=== PATIENT | female | born 1955 | race Two or more races ===

== ENCOUNTER → 2024-04-23 | Outpatient (CLI) | payer OTHER, SELFPAY ==
--- NOTE | 2024-04-23 12:35 | XR_ITS ---
Examination: Fingers, right hand fourth digit 3 views Technique: AP, oblique, lateral views right hand fourth digit 3 views. 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
== END | disposition home or self-care (01) ==
LOC: CDIM 12:23
PROVIDERS: PCP Family Medicine; Referring Provider Nurse Practitioner Family; Visit Provider Nurse Practitioner Family
DX: M19.041 Primary osteoarthritis, right hand (principal)
CPT/HCPCS: 73140

== ENCOUNTER → 2024-04-28 | Outpatient (CLI) | payer OTHER, SELFPAY ==
[2024-04-28 08:38] LABS: Basophils % (Auto) 1 % (0-2.5); Eosinophils # (Auto) 0.1 Thou/mm3 (0.0-0.5); Eosinophils % (Auto) 1 % (0-10); Hematocrit 41.2 % (36.0-46.0); Hemoglobin 13.5 g/dL (12.0-16.0); Immature Granulocytes % (Auto) 0 % (0-0); Immature Granulocytes Auto 0.01 Thou/mm3 (0.00-0.00); Lymphocytes # (Auto) 2.6 Thou/mm3 (1.0-4.8); Lymphocytes % (Auto) 41 % (10-50); Mean Corpuscular HGB Conc 32.8 g/dl (31.0-37.0); Mean Corpuscular Hemoglobin 29.5 pg (25.0-35.0); Mean Corpuscular Volume 90 fL (80-100); Monocytes # (Auto) 0.5 Thou/mm3 (0.0-0.8); Monocytes % (Auto) 7 % (0-12); Neutrophils # (Auto) 3.2 Thou/mm3 (1.8-7.7); Neutrophils % (Auto) 50 % (37-80); Nucleated Red Blood Cell % 0 /100 WBC (0); Platelet Count 127 Thou/mm3 (140-440); RDW Standard Deviation 43.8 fL (36.4-46.3); Red Blood Count 4.57 Miln/mm3 (4.00-5.20); White Blood Count 6.3 Thou/mm3 (3.6-11.0)
[2024-04-28 08:53] LABS: Alanine Aminotransferase 35 U/L (10-49); Albumin, Serum 4.3 gm/dL (3.4-4.8); Albumin/Globulin Ratio 1.3 (1.2-2.2); Alkaline Phosphatase 93 U/L (46-116); Anion Gap 8 (7-16); Aspartate Amino Transferase 25 U/L (0-34); BUN/Creatinine Ratio 16 Ratio (12-20); Bilirubin,Total 0.9 mg/dL (0.3-1.2); Blood Urea Nitrogen 16 mg/dL (9-23); Calcium 9.6 mg/dL (8.3-10.6); Calcium (Corrected) 9.6 mg/dL (8.5-10.1); Carbon Dioxide 26.5 mMol/L (20.0-31.0); Cardiac Risk Estimate 4.1 RATIO (3.7-5.6); Chloride 106 mMol/L (98-107); Cholesterol 188 mg/dL (132-200); Globulin 3.2 gm/dL (2.3-3.5); Glucose 112 mg/dL (74-106); HDL Cholesterol 46 mg/dL (40-60); LDL Cholesterol,Calculated 117 mg/dL (0-130); Osmolality,Calculated 281 (275-295); Potassium 4.8 mMol/L (3.4-5.1); Sodium 140 mMol/L (136-145); Total Protein 7.5 gm/dL (5.7-8.2); Triglycerides 126 mg/dL (30-150); eGFR > 60 See Note
[2024-05-04 06:54] LABS: ANA Pattern NUCLEAR, SPECKLED; ANA Screen, IFA POSITIVE (NEGATIVE); ANA Titer >=1:1280 titer
== END | disposition home or self-care (01) ==
PROVIDERS: PCP Family Medicine; Referring Provider Nurse Practitioner Family; Visit Provider Nurse Practitioner Family
DX: I73.00 Raynaud's syndrome without gangrene (principal); Z13.1 Encounter for screening for diabetes mellitus
CPT/HCPCS: 36415; 80053; 80061; 85025; 86038; 86039

== ENCOUNTER → 2024-05-14 | Outpatient (CLI) | payer OTHER, SELFPAY ==
--- NOTE | 2024-05-14 16:00 | XR_ITS ---
Examination: CT brain head without contrast. 2-D sagittal coronal reconstructions Date and time of exam:May 14, 2024 1603 hours INDICATIONS: Headaches and dizziness beginning one month ago CTDI: vol (mGy):43.8 DLP: (mGycm):902 Technique: Multiple CT axial sections of the brain have been obtained, 5 mm slice thickness. Contrast has not been administered. 2-D sagittal, coronal reconstructions have been obtained Low dose protocols were performed. One or more of the following dose reduction techniques were used; automated exposure control, adjustment of the mA and/or KV according to patient size, use of iterative reconstruction technique. Findings: No significant ventricular enlargement. Intra-axial or extra-axial hemorrhage density is not seen. No mass effect or midline shift Basal cisterns are not remarkable. Fourth ventricle is midline. Cranial vault intact. Impression: Negative for acute hemorrhage, mass effect or midline shift
== END | disposition home or self-care (01) ==
PROVIDERS: PCP Family Medicine; Referring Provider Family Medicine; Visit Provider Family Medicine
DX: G44.209 Tension-type headache, unspecified, not intractable (principal); R42 Dizziness and giddiness
CPT/HCPCS: 70450

== ENCOUNTER 2024-05-16 23:56 | Observation (INO) | payer OTHER, SELFPAY ==
[2024-05-17] VITALS (15 sets, daily range): BP systolic 117–161; BP diastolic 61–91; PULSE 51–145; RESP 16–100; TEMP 36.1–37; O2SAT 92–99; BMI 24.2
--- NOTE | 2024-05-17 00:05 | EKG_ITS ---
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
--- NOTE | 2024-05-17 00:25 | EDNOTE_ITS ---
ED Headache RME/HPI General Chief Complaint: Headache Stated Complaint: HEADACHE,HIGH BP,HR FAST Time Seen by Provider: 05/17/24 00:23 Arrival date/time: 05/16/24 23:56 RME / HPI RME / HPI Narrative: Dr. Maldonado?s Main ED Evaluation: 68yo female BIB her daughter presents to the ED for a chief complaint of a persistent headache x 3 weeks. Daughter states the patient's blood pressure has been elevated since yesterday, reporting her heart rate started being elevated tonight. Daughter states the patient had a CT on , but has not gotten the results back due to her PCP being out of town until 05/22/23. She denies any shortness of breath, chest pain, chills, fever, sweating or any other associated symptoms. NKA. Related Data Allergies Allergy/AdvReac Type Severity Reaction Status Date / Time No Known Allergies Allergy Verified 05/17/24 00:00 Review of Systems Review of Systems Systems Reviewed: All systems reviewed, normal except as documented Past Medical History Past Medical History CARDIAC: Positive Hypertension; Negative Congestive Heart Failure RESPIRATORY: Negative Chronic Obstructive Pulmonary Disease (COPD) GENITOURINARY: Negative Renal Disease ENDOCRINE: Positive Hyperthyroidism; Negative Diabetes Mellitus Type 1 or Diabetes Mellitus Type 2 Social History SMOKING STATUS: Never smoker ED Exam Narrative Physical exam: GENERAL APPEARANCE: alert and oriented x 4, well-developed, well-nourished, no acute distress VITALS: All vitals were reviewed and the pulse ox is 98% on room air, which is normal according to my interpretation. HEENT: Normocephalic, atraumatic; pupils equal, round, reactive to light; EOMI; mucous membranes pink, moist; oropharynx clear NECK: Supple LUNGS: CTABL; no wheezes, no rales, no rhonchi HEART: Irregularly irregular tachycardia; normal S1, S2; no murmurs ABDOMEN: non distended; normal BS; soft, no tenderness, no guarding, no rebound; no masses, no organomegaly, no hernia BACK: no CVA tenderness EXTREMITIES: atraumatic; no edema NEUROLOGIC: awake; alert and oriented x4; cranial nerves II-XII grossly intact; no focal sensory or motor deficits PSYCHIATRIC: appropriate mood and affect SKIN: warm, dry, normal color; no rashes Course Course Course Narrative: CXR is ordered for determining the etiology of palpitations. Quality Measures none Orders Category Date Time Status Superintendent Terminal STAT Care 05/17/24 00:49 Active Continuous Pulse Oximetry ONCE Care 05/17/24 00:49 Active EKG (ED ONLY) *Do not use* NOW Care 05/17/24 00:05 Completed EKG (ED ONLY) *Do not use* NOW Care 05/17/24 01:13 Completed Insert IV STAT Care 05/17/24 00:49 Completed EKG (ED Only) Stat Exams 05/17/24 00:05 Draft EKG (ED Only) Stat Exams 05/17/24 01:13 Draft XR chest 1V portable Stat Exams 05/17/24 00:49 Taken B-Type Natriuretic Peptide Stat Lab 05/17/24 00:58 Completed CBC Stat Lab 05/17/24 00:58 Completed Comprehensive Metabolic Panel Stat Lab 05/17/24 00:58 Completed Free T4 (Free Thyroxine) Stat Lab 05/17/24 00:58 Completed Lipase Stat Lab 05/17/24 00:58 Completed Magnesium Stat Lab 05/17/24 00:58 Completed Partial Thromboplastin Time Stat Lab 05/17/24 00:58 Completed Prothrombin Time with INR Stat Lab 05/17/24 00:58 Completed TSH [Thyroid Stimulating Hormone] Stat Lab 05/17/24 00:58 Completed Troponin I Stat Lab 05/17/24 00:58 Completed Acetaminophen Ivpb [Ofirmev Inj] Med 05/17/24 00:51 Active 1,000 mg in 100 ml IV Q6HR Diltiazem Inj [Cardizem Inj] Med 05/17/24 00:52 Discontinued 15 mg IV X1 ONE Diltiazem Inj [Cardizem Inj] Med 05/17/24 01:06 Discontinued 15 mg IV X1 ONE DiphenhydrAMINE INJ [Benadryl Inj] Med 05/17/24 00:51 Discontinued 12.5 mg IVP X1 ONE Metoclopramide Inj [Reglan Inj] Med 05/17/24 00:51 Discontinued 5 mg IVP X1 ONE Sodium Chloride 0.9% 500 ml [Ns] 500 ml Med 05/17/24 00:49 Discontinued IV 999 mls/hr Reevaluation(s) Reevaluation #1: Patient is now back in sinus rhythm with a HR of 57. Time: 02:30 Vital Signs Vital signs: Vital Signs Temperature 98.6 F 05/17/24 00:21 Pulse Rate 145 H 05/17/24 00:21 Respiratory Rate 18 05/17/24 00:21 Blood Pressure 161/85 H 05/17/24 00:21 Pulse Oximetry (%) 98 05/17/24 00:21 Oxygen Delivery Method Room Air 05/17/24 00:21 Headache MDM Narrative MDM Narrative:: Scribe Attestation: 05/17/24 Josy Xavier am scribing for and in the p resence of Dr. Maldonado. Patient data External records reviewed:: [facility] previous records (Per chart review, patient was seen here on 10/03/23 for palpitations.) Clinical information provided by:: patient and family Social determinants that could affect healthcare access:: none Patient has the following chronic illnesses:: HTN How is presenting disease/condition affected by chronic disease/condition?: caused by Evaluation data The following diagnostics were reviewed and interpreted by me:: lab results, radiology exam(s) and EKG tracing(s) Lab and/or radiology exams considered but not ordered:: none Interpretation Summary: CBC is normal, CMP is normal, troponin is elevated at 0.052, BNP is elevated at 220, PT and INR are normal, PTT is normal, according to my interpretation. EKG done at 0021, aFib RvR, rate of 145, left axis deviation, no acute ischemia, according to my interpretation. Repeat EKG done at 0144, aFib, rate of 96, left axis deviation, no acute ischemia, according to my interpretation. Medications / Prescriptions Medications or Prescriptions considered but not ordered:: none Medication administrations:: Medication Administration History Acetaminophen (Ofirmev Inj) 1,000 mg in 100 mls @ 250 mls/hr IV Q6HR STONE Stop: 05/17/24 18:23 Last Infusion: 05/17/24 01:36 Dose: Infused Documented By: Admin: 05/17/24 01:06 Dose: 250 mls/hr Documented By: REMY Discontinued Medications Diltiazem HCl (Diltiazem Inj 5 Mg/Ml Vial 5 Ml) 15 mg IV X1 ONE Stop: 05/17/24 00:53 Last Admin: 05/17/24 01:00 Dose: 15 mg Documented By: REMY Diltiazem HCl (Diltiazem Inj 5 Mg/Ml Vial 5 Ml) 15 mg IV X1 ONE Stop: 05/17/24 01:07 Last Admin: 05/17/24 01:09 Dose: 15 mg Documented By: REMY Diphenhydramine HCl (Diphenhydramine Inj 50 Mg/Ml Vial) 12.5 mg IVP X1 ONE Stop: 05/17/24 00:52 Last Admin: 05/17/24 01:02 Dose: 12.5 mg Documented By: REMY Sodium Chloride (Ns) 500 mls @ 999 mls/hr IV .Q31M ONE Stop: 05/17/24 01:19 Last Infusion: 05/17/24 01:36 Dose: Infused Documented By: Admin: 05/17/24 01:03 Dose: 999 mls/hr Documented By: REMY Metoclopramide HCl (Metoclopramide Inj 5 Mg/Ml Vial 2 Ml) 5 mg IVP X1 ONE; Protocol Stop: 05/17/24 00:52 Last Admin: 05/17/24 01:04 Dose: 5 mg Documented By: REMY see above Consultations Consultation(s) initiated? (list below): Yes Consultation #1 (Physician, Specialty, Details): Discussed case with [Dr. Toledo] from Hospitalist service regarding admission. Discussed patients ED course, exam findings, labs, and radiology results. The Hospitalist will evaluate the patient. Time: 04:11 Consultation #2 (Physician, Specialty, Details): The Hospitalist accepts the patient for admission. Time: 04:47 Diagnosis Differential diagnosis headache: other (aFib, arrhythmia, STEMI, NSTEMI) Most likely diagnosis given after review of the tests above:: see below Admission Indicated Admission indicated?: indicated Admission Request Was there a request for admission?: Yes Admission Attestation Admission request attestation: Discussed case with [] from Hospitalist service regarding admission. Discussed patients ED course, exam findings, labs, and radiology results. The Hospitalist [agrees,declines] to accept the patient for admission. Disposition Plan Disposition Plan: Admit Critical Care Time Critical Care Time Critical Care Time: Yes Total Critical Care Time (min.): 35 Attestation: The high probability of sudden, clinically significant deterioration in the patient?s condition required the highest level of my preparedness to intervene urgently. The services I provided to this patient were to treat and/or prevent clinically significant deterioration. Services included the following: chart data review, reviewing nursing notes and/or old charts, documentation time, data migration consultant collaboration regarding findings and treatment options, medication orders and management, direct patient care, vital sign assessments and ordering, interpreting and reviewing diagnostic studies and lab tests. Aggregate critical care time includes only time during which I was engaged in work directly related to the patient?s care, as described above, whether at bedside or elsewhere in the Emergency Department. It did not include time spent performing other reported procedures or the services of residents, students, nurses or physician assistants. Discharge Plan Prescriptions/Referrals Referrals: Umair Kunz MD [Primary Care Provider] - In 1 week Problem List Clinical Impression: New onset a-fib, Atrial fibrillation with rapid ventricular response Patient/Caregiver Discharge Instructions Print Language: Korean
--- NOTE | 2024-05-17 00:49 | XR_ITS ---
Examination: AP chest single view Technique: AP portable semiupright chest single view Exam date and time: May 17, 2024 0112 hrs. Comparison October 02, 2023 Indications: Onset chest pain and tachycardia hypertension today. Findings: Mild enlargement cardiac contour Moderate vascular congestion No lobar pneumonia No bertha pulmonary edema Moderate osteopenia Impression: Mild enlargement cardiac contour Moderate vascular congestion No pneumonia or bertha pulmonary edema
[2024-05-17] MEDS: DILTIAZEM INJ 5 MG/ML VIAL 5 ML 15 MG IV ×2 (01:00→01:09)
[2024-05-17] MEDS: DiphenhydrAMINE INJ 50 MG/ML VIAL 12.5 MG IVP (01:02)
[2024-05-17] MEDS: SODIUM CHLORIDE 0.9% 500 ML 500 ML 999 ML IV (01:03)
[2024-05-17] MEDS: METOCLOPRAMIDE INJ 5 MG/ML VIAL 2 ML IVP (01:04)
[2024-05-17] MEDS: ACETAMINOPHEN IVPB 1,000 MG/100 ML VIAL 250 MG IV (01:06)
--- NOTE | 2024-05-17 01:13 | EKG_ITS ---
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
[2024-05-17 01:43] LABS: Basophils % (Auto) 0 % (0-2.5); Eosinophils # (Auto) 0.1 Thou/mm3 (0.0-0.5); Eosinophils % (Auto) 1 % (0-10); Hematocrit 44.7 % (36.0-46.0); Hemoglobin 14.6 g/dL (12.0-16.0); Immature Granulocytes % (Auto) 0 % (0-0); Immature Granulocytes Auto 0.03 Thou/mm3 (0.00-0.00); Lymphocytes # (Auto) 3.6 Thou/mm3 (1.0-4.8); Lymphocytes % (Auto) 44 % (10-50); Mean Corpuscular HGB Conc 32.7 g/dl (31.0-37.0); Mean Corpuscular Volume 89 fL (80-100); Monocytes # (Auto) 0.9 Thou/mm3 (0.0-0.8); Monocytes % (Auto) 11 % (0-12); Neutrophils # (Auto) 3.6 Thou/mm3 (1.8-7.7); Neutrophils % (Auto) 44 % (37-80); Nucleated Red Blood Cell % 0 /100 WBC (0); Platelet Count 131 Thou/mm3 (140-440); Red Blood Count 5.04 Miln/mm3 (4.00-5.20); White Blood Count 8.2 Thou/mm3 (3.6-11.0)
[2024-05-17 01:50] LABS: Partial Thromboplastin Time 26.8 Seconds (22.0-36.0); Prothrombin Time 11.4 Seconds (9.0-12.2)
[2024-05-17 01:57] LABS: Alanine Aminotransferase 33 U/L (10-49); Albumin, Serum 4.5 gm/dL (3.4-4.8); Albumin/Globulin Ratio 1.3 (1.2-2.2); Alkaline Phosphatase 97 U/L (46-116); Anion Gap 9 (7-16); Aspartate Amino Transferase 33 U/L (0-34); BUN/Creatinine Ratio 21 Ratio (12-20); Bilirubin,Total 0.8 mg/dL (0.3-1.2); Blood Urea Nitrogen 21 mg/dL (9-23); Calcium 10.5 mg/dL (8.3-10.6); Calcium (Corrected) 10.5 mg/dL (8.5-10.1); Carbon Dioxide 25.7 mMol/L (20.0-31.0); Chloride 107 mMol/L (98-107); Estimated Creatinine Clearance 51.8 mL/min (>60); Free T4 (Free Thyroxine) 1.33 ng/dL (0.89-1.76); Globulin 3.5 gm/dL (2.3-3.5); Glucose 107 mg/dL (74-106); Lipase 36 U/L (12-53); Magnesium 2.2 mg/dL (1.6-2.6); Osmolality,Calculated 286 (275-295); Potassium 4.4 mMol/L (3.4-5.1); Sodium 142 mMol/L (136-145); Thyroid Stimulating Hormone 7.05 uIU/mL (0.55-4.78); eGFR > 60 See Note
[2024-05-17 01:59] LABS: Troponin I 0.054 ng/mL (0.0-0.045)
[2024-05-17 02:20] LABS: B-Type Natriuretic Peptide 220 pg/mL (0-100)
--- NOTE | 2024-05-17 05:08 | ESHP_ITS ---
Documentation for date of: 05/17/24 [facility] History of Present Illness Chief complaint: Palpitation History of present illness: Ms. Sanders is a Faroese-speaking 68-year-old female with past medical history of hypertension, hypothyroidism and arthritis who presented to [facility] on 05/17/2024 with chief complaint of palpitation. Patient reported that she has been having a headache for the last 3 weeks, followed up with her primary care physician who ordered a CT scan of head, patient was monitoring blood pressure closely when she started having palpitations and noticed her heart rate was 143, she drove from [place] to [place] and her daughter brought her to the emergency department. Patient's systolic blood pressure has been in the 160s, in ED patient's EKG showed atrial fibrillation, patient was given diltiazem 15 mg x 2 in ED eventually causing the heart rate to drop significantly in 40s. Patient seen at bedside currently sinus rhythm. Patient also complains of dizziness on standing up, denies any falls. Patient complains of whitish discoloration of fingertips at times. Patient will be admitted for observation due to concern of new onset A-fib, possible paroxysmal atrial fibrillation and cardiology consult. ED Course: ED Vitals: On presentation BP 161/85, P145, RR 18, temp 98.6, O2 sat 98 on room air ED Labs:ED labs significant for platelet count 131, glucose 107, corrected calcium 10.5, troponin 0.054, BNP 220, TSH 7.05, free T4 1.33 ED Imaging: EKG in ED shows atrial fibrillation with RVR ED Treatment:Patient was given diltiazem 15 mg x 2 in ED, diphenhydramine 12.5 mg x 1, 500 cc bolus of NaCl, Tylenol 1000 mg x 1 Reglan 5 mg x 1 in ED patient became bradycardic after. Review of Systems Review of Systems Narrative Review of Systems: ROS: -CONSTITUTIONAL: Denies weight loss, fever and chills. -HEENT: Denies changes in vision and hearing. -RESPIRATORY: Denies SOB and cough. -CV: Positive for palpitations and denies Chest Pain. -GI: Denies abdominal pain, nausea, vomiting,constipation and diarrhea. -: Denies dysuria and urinary frequency. -MSK: Denies myalgia and joint pain. -SKIN: Denies rash and pruritus. -NEUROLOGICAL: Positive for headache and dizziness. -PSYCHIATRIC: Denies recent changes in mood. Denies anxiety and depression. 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 Conversational and non-toxic appearing. Faroese-speaking HEENT: Normocephalic, atraumatic, mucous membranes moist. Heart: Regular rate and rhythm, no murmurs. Lungs: Clear to auscultation with no wheezing or crackles. Abdomen: Soft, nondistended, nontender, positive bowel sounds. ?No guarding or rebound tenderness. Neurologic: Alert and oriented x3, no gross neurological deficit, and patient able to move all 4 extremities. Extremities: No edema. Skin: No rash or ecchymoses. Small wound noted on right hand. Results: Labs 05/17/24 05:27 05/17/24 05:27 Labs: Short CBC 05/17/24 Range/Units 00:58 WBC 8.2 (3.6-11.0) Thou/mm3 Hgb 14.6 (12.0-16.0) g/dL Hct 44.7 (36.0-46.0) % Plt Count 131 L (140-440) Thou/mm3 BMP 05/17/24 00:58 Sodium 142 Potassium 4.4 Chloride 107 Carbon Dioxide 25.7 BUN 21 Creatinine 1.0 Glucose 107 H Calcium 10.5 Cardiac Enzymes 05/17/24 Range/Units 00:58 Troponin I 0.054 H* (0.0-0.045) ng/mL Liver Function 05/17/24 Range/Units 00:58 Total Bilirubin 0.8 (0.3-1.2) mg/dL AST 33 (0-34) U/L ALT 33 (10-49) U/L Alkaline Phosphatase 97 (46-116) U/L Albumin 4.5 (3.4-4.8) gm/dL Quality Measures Quality Measures none Advance care planning discussed with:: patient and child Medications Home Medications and Allergies Home Medications ?Medication ?Instructions ?Recorded ?Confirmed ?Type amlodipine 2.5 mg tablet 2.5 mg PO HS 05/17/24 05/17/24 History levothyroxine 50 mcg tablet 50 mcg PO QDAY 05/17/24 05/17/24 History ramipril 5 mg capsule 5 mg PO QDAY 05/17/24 05/17/24 History Allergies Allergy/AdvReac Type Severity Reaction Status Date / Time No Known Allergies Allergy Verified 05/17/24 00:00 Visit Medications Acetaminophen (Acetaminophen 325 Mg Tablet) 650 mg PO Q6H PRN PRN Reason: Pain and Fever >101.5 Stop: 06/16/24 04:52 Heparin Sodium (Porcine) (Heparin Sod Inj 5000 Unit/Ml Vial) 5,000 unit SC Q12H STONE Stop: 05/31/24 08:59 Acetaminophen (Ofirmev Inj) 1,000 mg in 100 mls @ 250 mls/hr IV Q6HR STONE Stop: 05/17/24 18:23 Last Infusion: 05/17/24 01:36 Dose: Infused Levothyroxine Sodium (Levothyroxine Sodium 25 Mcg Tablet) 50 mcg PO ACBR STONE Stop: 06/16/24 05:59 Ondansetron HCl (Ondansetron Inj 2 Mg/Ml Inj 2 Ml) 4 mg IV Q6H PRN; Protocol PRN Reason: NAUSEA OR VOMITING Stop: 06/16/24 04:52 Sennosides (Senna Tablet) 1 tab PO QDAY PRN; Protocol PRN Reason: constipation Stop: 06/16/24 04:52 Discontinued Medications Diltiazem HCl (Diltiazem Inj 5 Mg/Ml Vial 5 Ml) 15 mg IV X1 ONE Stop: 05/17/24 00:53 Last Admin: 05/17/24 01:00 Dose: 15 mg Diltiazem HCl (Diltiazem Inj 5 Mg/Ml Vial 5 Ml) 15 mg IV X1 ONE Stop: 05/17/24 01:07 Last Admin: 05/17/24 01:09 Dose: 15 mg Diphenhydramine HCl (Diphenhydramine Inj 50 Mg/Ml Vial) 12.5 mg IVP X1 ONE Stop: 05/17/24 00:52 Last Admin: 05/17/24 01:02 Dose: 12.5 mg Sodium Chloride (Ns) 500 mls @ 999 mls/hr IV .Q31M ONE Stop: 05/17/24 01:19 Last Infusion: 05/17/24 01:36 Dose: Infused Metoclopramide HCl (Metoclopramide Inj 5 Mg/Ml Vial 2 Ml) 5 mg IVP X1 ONE; Protocol Stop: 05/17/24 00:52 Last Admin: 05/17/24 01:04 Dose: 5 mg Assessment & Plan Plan Summary: Ms. Sanders is a Faroese-speaking 68-year-old female with past medical history of hypertension, hypothyroidism and arthritis who presented to [facility] on 05/17/2024 with chief complaint of palpitation. Patient will be admitted for observation due to concern of new onset A-fib, possible paroxysmal atrial fibrillation and cardiology consult. # Paroxysmal atrial fibrillation # Palpitations # Dizziness Patient was monitoring blood pressure closely as instructed by PCP, she started having palpitations and noticed her heart rate was 143 In ED patient's EKG showed atrial fibrillation, patient was given diltiazem 15 mg x 2 in ED eventually causing the heart rate to drop significantly in 40s. Patient seen at bedside currently sinus rhythm. Patient does not have any established care with stick roller, has never seen a stick roller, follows up with PCP for hypertension and hypothyroidism TSH 7.05, free T4 1.33 Plan: -Admit to telemetry for monitoring -Patient currently in sinus rhythm -Cardiology consulted, appreciate recommendations -[id number] score 3, consider starting patient on DOAC -Consider ordering echocardiogram -Follow orthostatic vitals -Follow hemoglobin A1c and lipid panel in a.m. # Hypertension # Hypothyroidism # Arthritis Patient takes ramipril and amlodipine for hypertension. Will hold antihypertensive patient's blood pressure soft Patient takes 50 mcg levothyroxine daily, resumed Patient takes celecoxib 100 mg daily DVT prophylaxis: Heparin GI prophylaxis: Not indicated Diet: Cardiac Lines: Peripheral IV Code status: Full code Case discussed with Attending Dr. Styles. Elba Monteiro PGY1 Attending Provider Attestation/Addendum 68-year-old female was seen in ER bed #2. Patient was brought to the emergency room complaining of palpitations dizziness. Patient has high blood pressure hypothyroidism. In the emergency room she was in rapid atrial fibrillation. Dr. Maldonado gave diltiazem IV twice but her heart rate went down to the 50s. Patient was asymptomatic with a slow heart rate. She converted to normal sinus rhythm. The patient will be admitted for further evaluation and management.
[2024-05-17 05:32] LABS: Basophils % (Auto) 1 % (0-2.5); Eosinophils # (Auto) 0.1 Thou/mm3 (0.0-0.5); Eosinophils % (Auto) 1 % (0-10); Hematocrit 40.6 % (36.0-46.0); Hemoglobin 13.2 g/dL (12.0-16.0); Immature Granulocytes % (Auto) 0 % (0-0); Immature Granulocytes Auto 0.02 Thou/mm3 (0.00-0.00); Lymphocytes # (Auto) 2.3 Thou/mm3 (1.0-4.8); Lymphocytes % (Auto) 40 % (10-50); Mean Corpuscular HGB Conc 32.5 g/dl (31.0-37.0); Mean Corpuscular Hemoglobin 28.9 pg (25.0-35.0); Mean Corpuscular Volume 89 fL (80-100); Monocytes # (Auto) 0.6 Thou/mm3 (0.0-0.8); Monocytes % (Auto) 10 % (0-12); Neutrophils # (Auto) 2.8 Thou/mm3 (1.8-7.7); Neutrophils % (Auto) 48 % (37-80); Nucleated Red Blood Cell % 0 /100 WBC (0); Platelet Count 148 Thou/mm3 (140-440); RDW Standard Deviation 43.2 fL (36.4-46.3); Red Blood Count 4.56 Miln/mm3 (4.00-5.20); White Blood Count 5.8 Thou/mm3 (3.6-11.0)
[2024-05-17] MEDS: LEVOTHYROXINE SODIUM 25 MCG TABLET 50 MCG PO (05:44)
[2024-05-17 06:10] LABS: Alanine Aminotransferase 27 U/L (10-49); Albumin, Serum 4.3 gm/dL (3.4-4.8); Albumin/Globulin Ratio 1.3 (1.2-2.2); Alkaline Phosphatase 82 U/L (46-116); Anion Gap 9 (7-16); Aspartate Amino Transferase 22 U/L (0-34); BUN/Creatinine Ratio 17 Ratio (12-20); Bilirubin,Total 0.9 mg/dL (0.3-1.2); Blood Urea Nitrogen 15 mg/dL (9-23); Calcium 9.6 mg/dL (8.3-10.6); Calcium (Corrected) 9.6 mg/dL (8.5-10.1); Carbon Dioxide 25.8 mMol/L (20.0-31.0); Chloride 108 mMol/L (98-107); Creatinine (Component) 0.9 mg/dL (0.6-1.3); Estimated Creatinine Clearance 57.6 mL/min (>60); Globulin 3.3 gm/dL (2.3-3.5); Glucose 110 mg/dL (74-106); Osmolality,Calculated 286 (275-295); Potassium 4.3 mMol/L (3.4-5.1); Sodium 143 mMol/L (136-145); Total Protein 7.6 gm/dL (5.7-8.2); eGFR > 60 See Note
[2024-05-17 06:12] LABS: Troponin I 0.055 ng/mL (0.0-0.045)
[2024-05-17 07:18] LABS: Collection Type, Urine Clean Catch
[2024-05-17 07:33] LABS: Bilirubin,Urine Negative (Negative); Blood,Urine Negative (Negative); Clarity,Urine Clear (Clear/Hazy); Color,Urine Colorless (Lt Yel-Yel); Glucose, Urine Negative (Negative); Ketones,Urine Negative (Negative); Leukocyte Esterase,Urine Negative (Negative); Nitrite,Urine Negative (Negative); Protein,Urine Negative (Neg - Trace); RBC,Urine < 1 /hpf (0-3); Specific Gravity,Urine 1.011 (1.001-1.035); Squamous Epithelial Cell,Urine < 1 /hpf (0-5); Urobilinogen,Urine Negative mg/dL (0.0-1.0); WBC,Urine 3 /hpf (0-5)
--- NOTE | 2024-05-17 08:27 | ECHO_ITS ---
Transthoracic Echo Report Ht (in): 66 Wt (lb): 150 Exam Location: Portable Status: Inpatient Nutrition Coordinator: Annita Greer Indications: Procedure Performed: BP: 137 / 72 HR: 70 Rhythm: Sinus Technical Quality: Fair MEASUREMENTS (Male / Female) Normal Values 2D ECHO LV Diastolic Diameter PLAX 3.5 cm 4.2 - 5.9 / 3.9 - 5.3 cm LV Systolic Diameter PLAX 2.5 cm IVS Diastolic Thickness 0.9 cm 0.6 - 1.0 / 0.6 - 0.9 cm LVPW Diastolic Thickness 0.9 cm 0.6 - 1.0 / 0.6 - 0.9 cm LV Relative Wall Thickness 0.5 LVOT Diameter 1.7 cm LA Volume Index 24.9 cm?/m? 16 - 28 cm?/m? Ascending Aorta Diameter 2.9 cm M-MODE Aortic Root Diameter MM 2.6 cm LA Systolic Diameter MM 4.3 cm LA Ao Ratio MM 1.7 AV Cusp Separation MM 1.9 cm DOPPLER AV Peak Velocity 185.0 cm/s AV Peak Gradient 13.7 mmHg AV Mean Gradient 6.0 mmHg AV Velocity Time Integral 34.8 cm LVOT Peak Velocity 117.0 cm/s LVOT Peak Gradient 5.5 mmHg LVOT Velocity Time Integral 24.3 cm LVOT Cardiac Index 2159.3 cm?/min?m? AV Area Cont Eq vti 1.6 cm? AV Area Cont Eq pk 1.4 cm? MV Peak Velocity 86.1 cm/s MV Peak Gradient 3.0 mmHg MV Mean Velocity 46.7 cm/s MV Mean Gradient 1.0 mmHg MV Area PHT 3.1 cm? MR Peak Velocity 416.5 cm/s MR Peak Gradient 69.4 mmHg Mitral E Point Velocity 92.2 cm/s Mitral A Point Velocity 62.6 cm/s Mitral E to A Ratio 1.5 LV E' Lateral Velocity 7.1 cm/s Mitral E to LV E' Lateral Ratio 13.0 LV E' Septal Velocity 6.2 cm/s Mitral E to LV E' Septal Ratio 14.9 TR Peak Velocity 225.0 cm/s TR Peak Gradient 20.3 mmHg FINDINGS Left Ventricle Normal left ventricular size, wall thickness, systolic function with no obvious regional wall motion abnormalities. The ejection fraction is visually estimated at 55-60 %. Right Ventricle The right ventricle is normal in size and systolic function. The estimated right ventricular systoli c pressure, 25 mmHg. RAP 5. Left Atrium The left atrium is normal by two-dimensional, color flow and Doppler imaging with no structural abnormalities, no thrombus formation present. Right Atrium The right atrium is normal by two-dimensional imaging, color flow and Doppler imaging with no struct ural abnormalities, no thrombus formation present. Atrial Septum The interatrial septum appears normal with no evidence of a shunt. Aorta The aorta is normal by two-dimensional, color flow and Doppler interrogation. Mitral Valve The mitral valve is mildly MAC. There is mild mitral valve regurgitation. Aortic Valve The aortic valve is trileaflet and normal by two-dimensional, color flow and Doppler interrogation. There is mild aortic valve regurgitation. Tricuspid Valve The tricuspid valve is normal by two-dimensional, color flow and Doppler interrogation. There is tra ce tricuspid valve regurgitation. Pulmonic Valve There is no significant pulmonic valve regurgitation. Vessels The pulmonary artery appears normal. The inferior vena cava pulmonary and hepatic veins appear larissa l. Pericardium The pericardium is normal by two-dimensional imaging. There is no significant pericardial effusion. CONCLUSIONS The transthoracic study is normal by two-dimensional, color flow imaging and Doppler interrogation. Normal LV size and function. Estimated EF 55-60% Normal RV size and function Mild MAC with Mild MR Mild TR Camilla Baxter (Electronically Signed) Final Date: 18 May 2024 17:03
[2024-05-17] MEDS: HEPARIN SOD INJ 5000 UNIT/ML VIAL SC (08:39)
[2024-05-17 09:27] LABS: Magnesium 2.1 mg/dL (1.6-2.6)
--- NOTE | 2024-05-17 12:29 | PC.SS ---
Shala Sanders is a 68-year-old female admitted to [facility] for New onset Afib. SS conducted bedside contact with the patient to complete initial assessment and to discuss discharge planning. Patient confirmed demographic information. Patient identifies her Jovanny Sanders [phone] as her surrogate decision maker. Patient resides at home with her . Pt states she is able to complete all ADL?s independently, no need for any source of DME. Pts PCP is Dr. Kunz (last visit 04/06/2024) and her pharmacy of choice is [facility] on [address]. DC options discussed pt wishes to retrun home. Pts will provide transportation upon DC. No further intervention required at this time, adoption social worker would be available to address any further concerns. DC Plan: Home Contact: Jovanny Tommy [phone] PCP: Ze
--- NOTE | 2024-05-17 12:57 | ESPR_ITS ---
<Statement entered by Massiel Chairez MD - 05/17/24 15:12> I discussed with and supervised my co-resident involved in the care of this patient. I agree with the assessment and plan as documented above. Patient seen and examined at bedside. This morning, patient complains of mild headache. Daughter at bedside - patient had previous episode of palpitations and was seen in the ER. She saw a grid trimmer outpatient once after that but did not return. Patient is back in sinus rhythm and denies any current palpitations. Will get an echocardiogram and reach out to grid trimmer Dr. Al. Anticipate patient will need anticoagulation as her CHADVASC score is 3. This was explained to the patient and patient's family member at bedside. Massiel Chairez MD PGY-3 Documentation for date of: 05/17/24 Subjective Subjective Interval history: Patient is an eight 68-year-old female with a past medical history of hypertension, hyperthyroidism who takes her levothyroxine regularly who was admitted on 05/17/2024 for new set of paroxysmal atrial fibrillation. No overnight events reported for patient. Patient has been sinus rhythm overnight, no A-fib reported on telemetry. Patient stated she takes her medication as prescribed for the levothyroxine, 45 minutes before her first meal. Patient stated she previously was seen in the ER 09/23/2023 for similar symptoms where patient had increased palpitations and chest pain. Patient was discharged from the emergency room with no changes noted on EKG and told to follow-up with cardiology. Patient briefly followed with cardiology and then stopped going. This morning patient denied any chest pain or shortness of breath. She first noticed increased palpitations yesterday 05/16/2024 and became concerned as similar symptoms have happened before, check blood pressure and noted increased heart rate. No previous history of cardiac events or irregular arrhythmias. Denied any medication besides hypertensive medication and levothyroxine. Orthostatic vitals ordered follow-up. Pending recommendations from Dr. Al. Exam Vital Signs Temp Pulse Resp BP Pulse Ox O2 Del Method 98.1 F 56 L 20 131/66 H 95 Room Air 05/17/24 12:00 05/17/24 12:00 05/17/24 12:00 05/17/24 12:00 05/17/24 12:00 05/17/24 12:00 Narrative Exam General Appearance: Alert & Oriented X3, well-nourished female who is lying in bed in no acute distress HEENT: Skull symmetrical and atraumatic. Conjunctivae pink and moist. Pupils equal, round, reactive to light and accommodation (PERRL). External ear without lesion or discharge. Straight, nares patient, mucosa pink, no discharge. No thyroid nodule appreciated. No cervical lymphadenopathy. Cardio: Normal Rate and Rhythm with S1 and S2 heart sounds. No murmurs or extra heart sounds auscultated. No bruits on carotid auscultation. No peripheral edema or cyanosis. Lungs: Symmetric with good expansion. Chest and back non-tender. Breath sounds vesicular without crackles, wheezing or rhonchi Abdomen: Non-tender, Non-distended, Normal Reactive Bowel Sounds Neuro: Alert, cooperative, oriented to person, place, and time. Speech clear. CN grossly intact. Upper motor strength 5/5 and Lower motor strength 5/5. Sensation intact. Objective Labs 05/18/24 05:33 05/18/24 05:33 Labs: Laboratory Results - last 24 hr 05/17/24 05/17/24 05/17/24 00:58 05:27 06:43 WBC 8.2 5.8 RBC 5.04 4.56 Hgb 14.6 13.2 Hct 44.7 40.6 MCV 89 89 MCH 29.0 28.9 MCHC 32.7 32.5 RDW Std Deviation 43.0 43.2 Plt Count 131 L 148 Neut % (Auto) 44 48 Lymph % (Auto) 44 40 [place] % (Auto) 11 10 Eos % (Auto) 1 1 Baso % (Auto) 0 1 Neut # (Auto) 3.6 2.8 Lymph # (Auto) 3.6 2.3 [place] # (Auto) 0.9 H 0.6 Eos # (Auto) 0.1 0.1 Baso # (Auto) 0.0 0.0 Immature Gran # (Auto) 0.03 H 0.02 H Absolute Nucleated RBC 0.00 0.00 Immature Gran % 0 0 Nucleated RBC % 0 0 PT 11.4 INR 1.0 APTT 26.8 Sodium 142 143 Potassium 4.4 4.3 Chloride 107 108 H Carbon Dioxide 25.7 25.8 Anion Gap 9 9 BUN 21 15 Creatinine 1.0 0.9 Estim Creat Clear Calc 51.8 L 57.6 L eGFR > 60 > 60 BUN/Creatinine Ratio 21 H 17 Glucose 107 H 110 H Calculated Osmolality 286 286 Calcium 10.5 9.6 Corrected Calcium 10.5 H 9.6 Magnesium 2.2 2.1 Total Bilirubin 0.8 0.9 AST 33 22 ALT 33 27 Alkaline Phosphatase 97 82 Troponin I 0.054 H* 0.055 H* B-Natriuretic Peptide 220 H Total Protein 8.0 7.6 Albumin 4.5 4.3 Globulin 3.5 3.3 Albumin/Globulin Ratio 1.3 1.3 Lipase 36 TSH 7.05 H Free T4 1.33 Ur Collection Type Clean Catch Urine Color Colorless A Urine Clarity Clear Urine pH 5.0 Ur Specific [place] 1.011 Urine Protein Negative Urine Glucose (UA) Negative Urine Ketones Negative Urine Blood Negative Urine Nitrite Negative Urine Bilirubin Negative Urine Urobilinogen (Auto) Negative Ur Leukocyte Esterase Negative Urine RBC < 1 Urine WBC 3 Ur Squamous Epith Cells < 1 Urine Bacteria None Quality Measures Quality Measures none Advance care planning discussed with:: patient Assessment & Plan Assessment Current Active Medications: Generic Name Dose Route Start Last Admin Trade Name Freq PRN Reason Stop Dose Admin Acetaminophen 650 mg 05/17/24 04:53 Acetaminophen 325 Mg Tablet PO 06/16/24 04:52 Q6H PRN Pain and Fever >101.5 Heparin Sodium (Porcine) 5,000 unit 05/17/24 09:00 05/17/24 08:39 Heparin Sod Inj 5000 Unit/Ml Vial SC 05/31/24 08:59 5,000 unit Q12H STONE Administration Levothyroxine Sodium 50 mcg 05/17/24 06:00 05/17/24 05:44 Levothyroxine Sodium 25 Mcg Tablet PO 06/16/24 05:59 50 mcg ACBR STONE Administration Ondansetron HCl 4 mg 05/17/24 04:53 Ondansetron Inj 2 Mg/Ml Inj 2 Ml IV 06/16/24 04:52 Q6H PRN NAUSEA OR VOMITING Protocol Sennosides 1 tab 05/17/24 04:53 Senna Tablet PO 06/16/24 04:52 QDAY PRN constipation Protocol Plan Patient is an eight 68-year-old female with a past medical history of hypertension, hyperthyroidism who takes her levothyroxine regularly who was admitted on 05/17/2024 for new set of paroxysmal atrial fibrillation. # Paroxysmal atrial fibrillation #Troponemia # Palpitations # Dizziness Etiology: likely secondary to etopic foci form structural changes. Elvated troponins, likely secondary to NSTEM II from demand ischemia. DDx: less likely secondary to electrolyte imbalance as Mg and K within normal limits vs hypothyroidisms given patient continues to take medication as prescribed by primary care vs anti-hypertensvie medication as blood pressure has been well controlled in patient. vs Less likely secondary to orthostatic hypotension given systolic blood pressure changes less than 24 systolic and less than 10 for diastolic. TSH 7.05, free T4 1.33 Orthostatics supine 151/74, standing vitals 142/82 Plan: -Eliquis 5 mg PO BID -Lipid panel, [id number] -No beta blockers recommendated at this time-follow outpatient --Echo pending -[id number] score 3, consider starting patient on DOAC -Cardilology Consulted, Dr. Al, appreciate recommendations. # Hypertension Hold current medication as systolic blood pressure <130. Plan -Consider restarting ramipril/Lisinopril or amlodpine if blood pressure increases -No BETA BLOCKERS planned. # Hypothyroidism # Arthritis Continue 50 mcg levothyroxine daily, resumed Plan: -Levothyroxine 50 mcg -Acetaminophen 650 PRN DVT prophylaxis: Heparin GI prophylaxis: Not indicated Diet: Cardiac Lines: Peripheral IV Code status: Full code - The patient's plan was discussed with attending Dr. Lucas and senior residents Dr. Chairez. Sariah Oakley MD PGY1 Internal Medicine Attending Provider Attestation/Addendum I, Glenys Lucas DO, attest that I was physically present for the [place] portions of the service and evaluated the patient with the resident and I reviewed and discussed the case with the resident and agree with the resident's findings and plans of care as documented above Patient seen and eval this a.m. She states that she is having a headache currently. However, she reports that her symptoms of occasional palpitations come with feeling hollow in her head as well. No further episodes of A-fib with RVR since admission. [id number] is 3, patient will benefit from full dose anticoagulation. Patient will need to be started on Eliquis. Will follow-up with cardiology recommendations as heart rate currently is below 60 in sinus rhythm. Echo pending.
--- NOTE | 2024-05-17 13:13 | PC.SS ---
Rounding: ECHO pending
[2024-05-17] MEDS: ACETAMINOPHEN 325 MG TABLET 650 MG PO (15:05)
--- NOTE | 2024-05-17 18:39 | ESCONSULT_ITS ---
RE: CHER HARRELL : 1955 DATE OF CONSULTATION: 05/17/2024 HISTORY OF PRESENT ILLNESS: The patient is a 68-year-old female with a past medical history of hypertension, hypothyroidism, and osteoarthritis who normally continues to work and never had a cardiac problem and admitted to the hospital because of palpitations for the last 2 to 3 weeks, intermittent palpitations. She has had some palpitations in the past. She came to the hospital with these palpitations. She was found to be in atrial fibrillation at a rate of 140 to 150 beats per minute. She was given diltiazem 15 mg x2 in ED. She converted to sinus rhythm. Heart rate dropped to low 40s, subsequently back up to 50s. Blood pressure is normal. She is maintained in sinus rhythm since then, asymptomatic. ALLERGIES: NONE. MEDICATIONS: At home, she takes amlodipine 2.5 daily for hypertension, levothyroxine 50 mcg daily, ramipril 5 mg daily. PAST MEDICAL HISTORY: Hypertension, hypercholesterolemia. SOCIAL HISTORY: The patient is fairly active. She does not smoke or drink alcoholic beverage. She used to drink a lot of caffeine containing beverage until 6 months ago. Now, she has stopped caffeine. IMPRESSION/ASSESSMENT: 1. Paroxysmal atrial fibrillation, presented to the hospital with atrial fibrillation with rapid ventricular response, converted to sinus rhythm. 2. Palpitations secondary to atrial fibrillation. 3. Hypertension, stable. 4. Hypothyroidism. RECOMMENDATIONS: The patient appears in the CHADS-VASc score of 3. Recommend anticoagulation, Eliquis 2.5 mg b.i.d. The patient has a history of hypertension and amlodipine. If her heart rate remains elevated, change amlodipine to diltiazem 120 mg daily for a CCB to help with hypertension as well as A-fib and recommend Eliquis 5 mg twice daily. If she feels well, she can be discharged home for workup as an outpatient in my office. Can get a cardiac echo Doppler study tomorrow prior to discharge, and I will evaluate her in the office following discharge in one week. DT: 15:24:03 TT: 18:38:00 Ref: [id number] - TID: [id number] MTDD
[2024-05-17] MEDS: APIXABAN 2.5 MG TABLET 5 MG PO (20:34)
[2024-05-18] VITALS (9 sets, daily range): BP systolic 118–137; BP diastolic 63–76; PULSE 45–85; RESP 12–97; TEMP 36–36.4; O2SAT 94–99
[2024-05-18] MEDS: LEVOTHYROXINE SODIUM 25 MCG TABLET 50 MCG PO (05:23)
[2024-05-18 06:10] LABS: Basophils % (Auto) 1 % (0-2.5); Eosinophils # (Auto) 0.1 Thou/mm3 (0.0-0.5); Eosinophils % (Auto) 2 % (0-10); Hemoglobin 12.7 g/dL (12.0-16.0); Immature Granulocytes % (Auto) 0 % (0-0); Immature Granulocytes Auto 0.01 Thou/mm3 (0.00-0.00); Lymphocytes # (Auto) 1.9 Thou/mm3 (1.0-4.8); Lymphocytes % (Auto) 35 % (10-50); Mean Corpuscular HGB Conc 33.4 g/dl (31.0-37.0); Mean Corpuscular Hemoglobin 30.1 pg (25.0-35.0); Mean Corpuscular Volume 90 fL (80-100); Monocytes # (Auto) 0.8 Thou/mm3 (0.0-0.8); Monocytes % (Auto) 14 % (0-12); Neutrophils # (Auto) 2.6 Thou/mm3 (1.8-7.7); Neutrophils % (Auto) 48 % (37-80); Nucleated Red Blood Cell % 0 /100 WBC (0); Platelet Count 170 Thou/mm3 (140-440); RDW Standard Deviation 43.5 fL (36.4-46.3); Red Blood Count 4.22 Miln/mm3 (4.00-5.20); White Blood Count 5.4 Thou/mm3 (3.6-11.0)
[2024-05-18 06:41] LABS: Alanine Aminotransferase 33 U/L (10-49); Albumin, Serum 4.1 gm/dL (3.4-4.8); Albumin/Globulin Ratio 1.4 (1.2-2.2); Alkaline Phosphatase 80 U/L (46-116); Anion Gap 9 (7-16); Aspartate Amino Transferase 24 U/L (0-34); BUN/Creatinine Ratio 20 Ratio (12-20); Bilirubin,Total 1.3 mg/dL (0.3-1.2); Blood Urea Nitrogen 18 mg/dL (9-23); Calcium 9.4 mg/dL (8.3-10.6); Calcium (Corrected) 9.4 mg/dL (8.5-10.1); Carbon Dioxide 25.5 mMol/L (20.0-31.0); Cardiac Risk Estimate 3.8 RATIO (3.7-5.6); Chloride 105 mMol/L (98-107); Cholesterol 165 mg/dL (132-200); Creatinine (Component) 0.9 mg/dL (0.6-1.3); Estimated Creatinine Clearance 62.4 mL/min (>60); Glucose 93 mg/dL (74-106); HDL Cholesterol 44 mg/dL (40-60); LDL Cholesterol,Calculated 106 mg/dL (0-130); Osmolality,Calculated 279 (275-295); Phosphorous 4.7 mg/dL (2.4-5.1); Potassium 4.2 mMol/L (3.4-5.1); Sodium 139 mMol/L (136-145); Total Protein 7.1 gm/dL (5.7-8.2); Triglycerides 77 mg/dL (30-150); eGFR > 60 See Note
[2024-05-18 06:46] LABS: Glucose Estimated Average 123 mg/dL (80-131); Hemoglobin A1C 5.9 % Hgb (4.8-6.0)
[2024-05-18] MEDS: APIXABAN 2.5 MG TABLET 5 MG PO (08:32)
[2024-05-18] MEDS: DILTIAZEM CD 120 MG CAPCR PO (08:32)
--- NOTE | 2024-05-18 09:04 | PC.SS ---
SS follow up note; Pending Echo, than patient can discharge.
--- NOTE | 2024-05-18 11:20 | PD.RESDS ---
Planned Discharge Date 05/18/24 DS: Providers Provider Date of admission: 05/17/24 04:53 Primary care physician: Umair Kunz MD Admitting Provider: Marko Styles MD Attending Provider on Admission: Marko Styles MD Consults: 05/17/24 04:48 Consult to Cardiology Stat Comment: Consulting Provider: Michelle Al Attending Provider on DC: El Linton MD Discharging Provider: El Linton MD Hospital Course Hospital Course Hospital course: Patient is an eight 68-year-old female with a past medical history of hypertension, hyperthyroidism who takes her levothyroxine regularly who was admitted on 05/17/2024 for new set of paroxysmal atrial fibrillation. No overnight events reported for patient. Patient has been sinus rhythm overnight, no A-fib reported on telemetry. Patient stated she takes her medication as prescribed for the levothyroxine, 45 minutes before her first meal. Patient stated she previously was seen in the ER 09/23/2023 for similar symptoms where patient had increased palpitations and chest pain. Patient was discharged from the emergency room with no changes noted on EKG and told to follow-up with cardiology. Patient briefly followed with cardiology and then stopped going. This morning patient denied any chest pain or shortness of breath. She first noticed increased palpitations yesterday 05/16/2024 and became concerned as similar symptoms have happened before, check blood pressure and noted increased heart rate. No previous history of cardiac events or irregular arrhythmias. Denied any medication besides hypertensive medication and levothyroxine. Orthostatic vitals ordered follow-up. Pending recommendations from Dr. Al. Time Spent with Patient Time attestation: Total time spent providing and/or coordinating discharge services: Exam Vital Signs Temp Pulse Resp BP Pulse Ox O2 Del Method 96.9 F 56 L 22 H 120/69 96 Room Air 05/18/24 08:00 05/18/24 08:39 05/18/24 08:39 05/18/24 08:32 05/18/24 08:00 05/18/24 08:00 Discharge Plan Plan Patient Disposition: HOME (Self Care) Prescriptions/Referrals Prescriptions/Med Rec: Continued levothyroxine 50 mcg tablet 50 mcg PO QDAY Patient Comments: TOME OG TABLETA POR V A ORAL EN LA MA DIMPLE ramipril 5 mg capsule 5 mg PO QDAY Patient Comments: TAKE 1 CAPSULE BY MOUTH EVERY MORNING Discontinued amlodipine 2.5 mg tablet 2.5 mg PO HS Patient Comments: TOME 1 TABLETA POR V A ORAL TOSCHNEIDER FLOR PAK Referrals: Umair Kunz MD [Primary Care Provider] - Michelle Al MD [Physician] - Patient/Caregiver Discharge Instructions Other Discharge Activity Instructions:: -Follow-up with PCP within 1 week of discharge -Follow-up with cardiology, Dr. Al, within 1-2 weeks of discharge -Continue taking Eliquis (apixaban) 5 mg orally twice daily -Continue taking levothyroxine and ramipril as prescribed -Return to the ED if symptoms worsen or recur Print Language: Frisian Stand Alone Forms: [employer] Award Info., Patient Portal Info Letter, Work/Release Restrictions
[2024-05-18] MEDS: ACETAMINOPHEN 325 MG TABLET 650 MG PO (13:15)
--- NOTE | 2024-05-18 14:41 | ESPR_ITS ---
<Statement entered by Massiel Chairez MD - 05/18/24 15:00> I discussed with and supervised my co-resident involved in the care of this patient. I agree with the assessment and plan as documented above. Patient seen and examined at bedside. No acute complaints overnight. Denies any current palpitations. Started on eliquis. Was explained risk and benefits of being on eliquis. Patient verbalized understanding. Now on diltiazem 125 oral. Pending echo then anticipate discharge after. Massiel Chairez MD PGY-3 Documentation for date of: 05/18/24 Subjective Subjective Interval history: Shala Sanders is a 68-year-old female with a past medical history of hypertension and hyperthyroidism who takes her levothyroxine regularly who was admitted on 05/17/2024 for new set of paroxysmal atrial fibrillation. No acute overnight events, and patient seen and examined at bedside. Denies having experienced any palpitations since admission, chest pain, shortness of breath, nausea, vomiting. No reported events of atrial fibrillation on telemetry, however patient has remained bradycardic in the 50s with some readings in the 40s. Exam Vital Signs Temp Pulse Resp BP Pulse Ox O2 Del Method 96.8 F 56 L 21 H 118/63 95 Room Air 05/18/24 12:00 05/18/24 12:00 05/18/24 12:00 05/18/24 12:00 05/18/24 12:00 05/18/24 12:00 Narrative Exam General: AOx3, no acute distress, able to speak full sentences HEENT: NC/AT, mucous membranes moist, bilateral sclera anicteric Cardiovascular: bradycardic, regular rhythm, S1/S2 present, no murmurs appreciated Pulmonary: clear to auscultation bilaterally, no rales/rhonchi/wheezes Abdominal: soft, non-tender, non-distended, no rebound/guarding, normal bowel sounds present Musculoskeletal: normal ROM, no peripheral edema Skin: warm and dry, intact, no rashes Neuro: CN II-XII intact, no focal deficits Objective Labs 05/18/24 05:33 05/18/24 05:33 Labs: Laboratory Results - last 24 hr 05/18/24 05:33 WBC 5.4 RBC 4.22 Hgb 12.7 Hct 38.0 MCV 90 MCH 30.1 MCHC 33.4 RDW Std Deviation 43.5 Plt Count 170 Neut % (Auto) 48 Lymph % (Auto) 35 [place] % (Auto) 14 H Eos % (Auto) 2 Baso % (Auto) 1 Neut # (Auto) 2.6 Lymph # (Auto) 1.9 [place] # (Auto) 0.8 Eos # (Auto) 0.1 Baso # (Auto) 0.0 Immature Gran # (Auto) 0.01 H Absolute Nucleated RBC 0.00 Immature Gran % 0 Nucleated RBC % 0 Sodium 139 Potassium 4.2 Chloride 105 Carbon Dioxide 25.5 Anion Gap 9 BUN 18 Creatinine 0.9 Estim Creat Clear Calc 62.4 eGFR > 60 BUN/Creatinine Ratio [address] Glu mg/dL 123 Hemoglobin A1c 5.9 Calculated Osmolality 279 Calcium 9.4 Corrected Calcium 9.4 Phosphorus 4.7 Magnesium 2.0 Total Bilirubin 1.3 H AST 24 ALT 33 Alkaline Phosphatase 80 Total Protein 7.1 Albumin 4.1 Globulin 3.0 Albumin/Globulin Ratio 1.4 Triglycerides 77 Cholesterol 165 LDL Cholesterol, Calc 106 HDL Cholesterol 44 Cholesterol/HDL Ratio 3.8 Quality Measures Quality Measures none Advance care planning discussed with:: patient, significant other and child Assessment & Plan Assessment Current Active Medications: Generic Name Dose Route Start Last Admin Trade Name Freq PRN Reason Stop Dose Admin Acetaminophen 650 mg 05/17/24 04:53 05/18/24 13:15 Acetaminophen 325 Mg Tablet PO 06/16/24 04:52 650 mg Q6H PRN Administration Pain and Fever >101.5 Apixaban 5 mg 05/17/24 21:00 05/18/24 08:32 Apixaban 2.5 Mg Tablet PO 06/16/24 20:59 5 mg BID STONE Administration Diltiazem HCl 120 mg 05/18/24 09:00 05/18/24 08:32 Diltiazem Cd 120 Mg Capcr PO 06/17/24 08:59 120 mg QDAY STONE Administration Levothyroxine Sodium 50 mcg 05/17/24 06:00 05/18/24 05:23 Levothyroxine Sodium 25 Mcg Tablet PO 06/16/24 05:59 50 mcg ACBR STONE Administration Ondansetron HCl 4 mg 05/17/24 04:53 Ondansetron Inj 2 Mg/Ml Inj 2 Ml IV 06/16/24 04:52 Q6H PRN NAUSEA OR VOMITING Protocol Sennosides 1 tab 05/17/24 04:53 Senna Tablet PO 06/16/24 04:52 QDAY PRN constipation Protocol Plan Shala Sanders is a 68-year-old female with a past medical history of hypertension and hyperthyroidism who takes her levothyroxine regularly who was admitted on 05/17/2024 for new set of paroxysmal atrial fibrillation. #Paroxysmal atrial fibrillation #Troponemia TSH 7.05, free T4 1.33. Orthostatics supine 151/74, standing vitals 142/82. ? No beta blockers recommendated at this time-follow outpatient ? Echo pending ? Cardiology consulted, appreciate recommendations -Eliquis 5 mg PO BID #Primary hypertension Hold current medication as systolic blood pressure <130. ? Consider restarting ramipril/Lisinopril or amlodpine if blood pressure increases #Hypothyroidism ? Levothyroxine 50 mcg Hospital management: Disposition: pending echo read Fluids: not indicated Diet: cardiac Lines: peripheral DVT prophylaxis: heparin SC CODE STATUS: full code ----- Plan discussed with attending physician Dr. Lucas and senior resident physician Dr. Contreras Linton MD PGY-1 Internal Medicine Attending Provider Attestation/Addendum I, Glenys Lucas, DO, attest that I was physically present for the [place] portions of the service and evaluated the patient with the resident and I reviewed and discussed the case with the resident and agree with the resident's findings and plans of care as documented above Patient seen and eval this a.m. She states that she is feeling much improved. She denies any chest pain or shortness of breath and no further episodes of headache or dizziness. Heart rate has been in the 50s to 60s. Patient was started on Cardizem's 120 mg p.o. daily and Eliquis 5 mg p.o. twice daily. Fall precautions and bleeding risks were discussed with patient and her at bedside with which they have verbalized understanding. Pending echocardiogram at this time. Anticipate discharge in the next 24 hours otherwise.
--- NOTE | 2024-05-18 21:23 | ESDS_ITS ---
<Statement entered by Glenys Lucas DO - 05/19/24 08:16> I, Glenys Lucas DO, attest that I was physically present for the [place] portions of the service and evaluated the patient with the resident and I reviewed and discussed the case with the resident and agree with the resident's findings and plans of care as documented above Planned Discharge Date 05/18/24 DS: Providers Provider Date of admission: 05/17/24 04:53 Primary care physician: Umair Kunz MD Admitting Provider: Marko Styles MD Attending Provider on Admission: Marko Styles MD Consults: 05/17/24 04:48 Consult to Cardiology Stat Comment: Consulting Provider: Michelle Al Attending Provider on DC: El Linton MD Discharging Provider: El Linton MD DS: Diagnosis Problem List Completed Was Problem List Reviewed/Reconciled?: Yes Hospital Course Hospital Course Hospital course: Shala Sanders is a 68-year-old female with a past medical history of hypertension and hyperthyroidism who takes her levothyroxine regularly and was admitted on 05/17 for new onset paroxysmal atrial fibrillation. She was given diltiazem 15 mg x 2 in the ED because heart rate or drop significantly into the 40s. Throughout her stay, heart rate remained largely in the 50s with no recurrent episodes of palpitations. She was started on Cardizem 120 mg p.o. daily as well as Eliquis 5 mg p.o. twice daily. Fall precautions and bleeding risks were discussed at length with patient and family at bedside who verbalized understanding. There were no acute overnight events. Cardiology was consulted and recommended starting anticoagulation given [id number] of 3. Additionally, she would be stable for discharge after obtaining echo for follow-up as outpati ent. Diagnoses during admission: #Paroxysmal atrial fibrillation #Troponemia #Primary hypertension #Hypothyroidism Discharge instructions: -Follow-up with PCP within 1 week of discharge -Follow-up with cardiology, Dr. Al, within 1-2 weeks of discharge -Continue taking Eliquis (apixaban) 5 mg orally twice daily for your atrial fibrillation - this is a blood thinner -Take diltiazem 120mg once a day for your atrial fibrillation -Stop taking ramipril 5mg and amlodipine 2.5mg because you are already taking diltiazem which already helps with blood pressure -Continue taking levothyroxine -Return to the ED if symptoms worsen or recur Time Spent with Patient Time attestation: Total time spent providing and/or coordinating discharge services: Exam Vital Signs Temp Pulse Resp BP Pulse Ox O2 Del Method 97.5 F 85 18 131/76 H 99 Room Air 05/18/24 19:02 05/18/24 19:02 05/18/24 19:02 05/18/24 19:02 05/18/24 19:02 05/18/24 19:02 Narrative Exam General: AOx3, no acute distress, able to speak full sentences HEENT: NC/AT, mucous membranes moist, bilateral sclera anicteric Cardiovascular: regular rate and rhythm, S1/S2 present, no murmurs appreciated Pulmonary: clear to auscultation bilaterally, no rales/rhonchi/wheezes Abdominal: soft, non-tender, non-distended, no rebound/guarding, normal bowel sounds present Musculoskeletal: normal ROM, no peripheral edema Skin: warm and dry, intact, no rashes Neuro: CN II-XII intact, no focal deficits Discharge Plan Plan Patient Disposition: HOME (Self Care) Patient condition on transfer: Stable Prescriptions/Referrals Prescriptions/Med Rec: New Eliquis 5 mg tablet 5 mg PO BID 30 Days Qty: 60 0RF diltiazem HCl 120 mg Capsule,Extended Release 24hr 120 mg PO QDAY 30 Days Qty: 30 0RF Continued levothyroxine 50 mcg tablet 50 mcg PO QDAY Patient Comments: TOME KELSI TABLETA POR V A ORAL EN LA MA DIMPLE Discontinued amlodipine 2.5 mg tablet 2.5 mg PO HS Patient Comments: TOME 1 TABLETA POR V A ORAL TODOS LOS D AL ACOSTARSE ramipril 5 mg capsule 5 mg PO QDAY Patient Comments: TAKE 1 CAPSULE BY MOUTH EVERY MORNING Referrals: Umair Kunz MD [Primary Care Provider] - Michelle Al MD [Physician] - Patient/Caregiver Discharge Instructions Other Discharge Activity Instructions:: -Follow-up with PCP within 1 week of discharge -Follow-up with cardiology, Dr. Al, within 1-2 weeks of discharge -Continue taking Eliquis (apixaban) 5 mg orally twice daily for your atrial fibrillation - this is a blood thinner -Take diltiazem 120mg once a day for your atrial fibrillation -Stop taking ramipril 5mg and amlodipine 2.5mg because you are already taking diltiazem which already helps with blood pressure -Continue taking levothyroxine -Return to the ED if symptoms worsen or recur -Seguimiento con PCP dentro de 1 semana del megan -Seguimiento con cardiolog?a, Dr. Al, dentro de 1-2 semanas despu?s del megan -Contin?e tomando Eliquis (apixaban) 5 mg por v?a oral dos veces al d?a para la fibrilaci?n auricular; syeda es un anticoagulante. -[place] 120 mg de diltiazem kelsi vez al d?a para la fibrilaci?n auricular. -Deje de reyna ramipril 5 mg y amlodipino 2,5 mg porque ya est? tomando diltiazem que ya ayuda con la presi?n arterial. -Continuar tomando levotiroxina. -Regresar al servicio de urgencias si los s?ntomas empeoran o recurren. Education Materials: ED Atrial Fibrillation Print Language: Telugu Stand Alone Forms: [facility] Award Info., Patient Portal Info Letter, Work/Release Restrictions Discharge Order Discharge Orders: Discharge (Routine); Ordered 05/18/24 Ordered By: Massiel Chairez Quality Discharge Quality Measures VTE prophylaxis
== END 2024-05-18 18:58 | disposition home or self-care (01) ==
LOC: SERX 05-17 02:41 → S2NX 05-17 17:21 → SERHOLD 05-18 08:37 → S2NX 05-18 08:37
PROVIDERS: Admitting Provider Internal Medicine; Emergency Provider Emergency Medicine; PCP Family Medicine; Visit Provider Internal Medicine
DX: I48.0 Paroxysmal atrial fibrillation (principal); M19.90 Unspecified osteoarthritis, unspecified site; I10 Essential (primary) hypertension; E78.00 Pure hypercholesterolemia, unspecified; E03.9 Hypothyroidism, unspecified
CPT/HCPCS: 36415; 71045; 80053; 80061; 81001; 83036; 83690; 83735; 83880; 84100; 84439; 84443; 84484; 85025; 85610; 85730; 93005; 93306; 96365; 96372; 99291; G0378; J0131; J1200; J1643; J2765; J3490; J7040; A9270; J1644

== ENCOUNTER 2024-08-18 03:17 | Inpatient (IN) | payer OTHER, MEDICARE, SELFPAY ==
[2024-08-18] VITALS (21 sets, daily range): BP systolic 109–176; BP diastolic 68–94; PULSE 59–144; RESP 15–94; TEMP 36.2–37.3; O2SAT 93–97; BMI 29.9
--- NOTE | 2024-08-18 03:24 | EKG_ITS ---
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
--- NOTE | 2024-08-18 03:32 | PD.EDRME ---
Rapid Medical Screening Exam RME Arrival date/time: 08/18/24 03:17 68 year old f with c/o of rapid hr. I have greeted and performed a focused initial assessment of this patient. A comprehensive ED assessment and evaluation of the patient, analysis of all test results, and completion of the medical decision making process will be conducted by additional ED providers. Chief Complaint: Arrhythmia/Palpitations Time Seen by Provider: 08/18/24 03:24 Vital signs: Vital Signs Temperature 98.3 F 08/18/24 03:31 Pulse Rate 144 H 08/18/24 03:31 Respiratory Rate 19 08/18/24 03:31 Blood Pressure 176/89 H 08/18/24 03:31 Pulse Oximetry (%) 96 08/18/24 03:31 Oxygen Delivery Method Room Air 08/18/24 03:31
--- NOTE | 2024-08-18 03:37 | XR_ITS ---
In examination: AP chest single view TECHNIQUE: AP portable upright chest single view Exam date and time: 08/18/2024 0345 hours Comparison May 17, 2024 INDICATIONS: Tachycardia today. FINDINGS: Normal heart size No lobar pneumonia or pulmonary edema. Moderate osteopenia IMPRESSION: No lobar pneumonia or pulmonary edema
[2024-08-18 04:00] LABS: Basophils % (Auto) 1 % (0-2.5); Eosinophils # (Auto) 0.1 Thou/mm3 (0.0-0.5); Eosinophils % (Auto) 2 % (0-10); Hematocrit 40.8 % (36.0-46.0); Hemoglobin 13.4 g/dL (12.0-16.0); Immature Granulocytes % (Auto) 0 % (0-0); Immature Granulocytes Auto 0.02 Thou/mm3 (0.00-0.00); Lymphocytes # (Auto) 2.8 Thou/mm3 (1.0-4.8); Lymphocytes % (Auto) 39 % (10-50); Mean Corpuscular HGB Conc 32.8 g/dl (31.0-37.0); Mean Corpuscular Hemoglobin 29.6 pg (25.0-35.0); Mean Corpuscular Volume 90 fL (80-100); Monocytes # (Auto) 0.8 Thou/mm3 (0.0-0.8); Monocytes % (Auto) 11 % (0-12); Neutrophils # (Auto) 3.4 Thou/mm3 (1.8-7.7); Neutrophils % (Auto) 48 % (37-80); Nucleated Red Blood Cell % 0 /100 WBC (0); Platelet Count 145 Thou/mm3 (140-440); RDW Standard Deviation 43.5 fL (36.4-46.3); Red Blood Count 4.53 Miln/mm3 (4.00-5.20); White Blood Count 7.2 Thou/mm3 (3.6-11.0)
--- NOTE | 2024-08-18 04:29 | PD.EDARRY ---
ED Arrhythmia Palp. RME/HPI General Chief Complaint: Arrhythmia/Palpitations Stated Complaint: BLOOD PRESSURE HIGH, FAST HR Time Seen by Provider: 08/18/24 03:24 Arrival date/time: 08/18/24 03:17 RME / HPI RME / HPI narrative: 08/18/24 03:17 68 year old f with c/o of rapid hr. I have greeted and performed a focused initial assessment of this patient. A comprehensive ED assessment and evaluation of the patient, analysis of all test results, and completion of the medical decision making process will be conducted by additional ED providers. --------- Dr. Maldonado?s Main ED Evaluation: 68yo female with a history of aFib on Eliquis, HTN, hyperthyroidism presents to the ED for a chief complaint of palpitations. Patient states her palpitations feel similar to when she was first diagnsoed with aFib. She denies any fever, chills, cough, shortness of breath, chest pain or any other associated symptoms. Related Data Home Medications ?Medication ?Instructions ?Recorded ?Confirmed levothyroxine 50 mcg tablet 50 mcg PO QDAY 05/17/24 05/17/24 Allergies Allergy/AdvReac Type Severity Reaction Status Date / Time No Known Allergies Allergy Verified 05/17/24 00:00 Review of Systems Review of Systems Systems Reviewed: All systems reviewed, normal except as documented Past Medical History Past Medical History CARDIAC: Positive Hypertension; Negative Congestive Heart Failure RESPIRATORY: Negative Chronic Obstructive Pulmonary Disease (COPD) GENITOURINARY: Negative Renal Disease ENDOCRINE: Positive Hyperthyroidism; Negative Diabetes Mellitus Type 1 or Diabetes Mellitus Type 2 Social History SMOKING STATUS: Never smoker ED Exam Narrative Physical exam: GENERAL APPEARANCE: alert and oriented x 4, well-developed, well-nourished, no acute distress VITALS: All vitals were reviewed and the pulse ox is 96% on room air, which is normal according to my interpretation. HEENT: Normocephalic, atraumatic; pupils equal, round, reactive to light; EOMI; mucous membranes pink, moist; oropharynx clear NECK: Supple LUNGS: CTABL; no wheezes, no rales, no rhonchi HEART: Irregularly irregular tachycardia; normal S1, S2; no murmurs ABDOMEN: non distended; normal BS; soft, no tenderness, no guarding, no rebound; no masses, no organomegaly, no hernia BACK: no CVA tenderness EXTREMITIES: atraumatic; no edema NEUROLOGIC: awake; alert and oriented x4; cranial nerves II-XII grossly intact; no focal sensory or motor deficits PSYCHIATRIC: appropriate mood and affect SKIN: warm, dry, normal color; no rashes Course Course Course Narrative: CXR is ordered for determining the etiology of palpitations. Quality Measures none Orders Category Date Time Status EKG (ED ONLY) *Do not use* NOW Care 08/18/24 03:24 Completed EKG (ED Only) Stat Exams 08/18/24 03:24 Draft XR chest 1V portable Stat Exams 08/18/24 03:37 Taken CBC Stat Lab 08/18/24 03:51 Completed CMP [Comprehensive Metabolic Panel] Stat Lab 08/18/24 03:51 Received Free T4 (Free Thyroxine) Stat Lab 08/18/24 03:51 Received TSH [Thyroid Stimulating Hormone] Stat Lab 08/18/24 03:51 Received Troponin I Stat Lab 08/18/24 03:51 Received Vital Signs Vital signs: Vital Signs Temperature 98.3 F 08/18/24 03:31 Pulse Rate 144 H 08/18/24 03:31 Respiratory Rate 19 08/18/24 03:31 Blood Pressure 176/89 H 08/18/24 03:31 Pulse Oximetry (%) 96 08/18/24 03:31 Oxygen Delivery Method Room Air 08/18/24 03:31 Arrhythmia/Palpitations MDM Narrative MDM Narrative:: Scribe Attestation: 08/18/24 Josy Xavier am scribing for and in the presence of Dr. Maldonado. 0509: Patient is currently receiving 5mg doses of Cardizem (up to 3). Patient data External records reviewed:: [facility] previous records (Per chart review, patient was admitted here on 05/17/24 for aFib RVR.) Clinical information provided by:: patient Social determinants that could affect healthcare access:: none Patient has the following chronic illnesses:: aFib, HTN, hyperthyroidism How is presenting disease/condition affected by chronic disease/condition?: caused by Evaluation data The following diagnostics were reviewed and interpreted by me:: lab results, radiology exam(s) and EKG tracing(s) Lab and/or radiology exams considered but not ordered:: none Interpretation Summary: CBC is normal, Glucose is 129, BNP is 132, TSH is elevated at 7.46, Free T4 is normal, according to my interpretation. CXR shows normal cardiac silhouette, normal sharp diaphragmatic edge, no infiltrates, normal costophrenic angles, according to my interpretation. EKG done at 0327, aFib RvR, rate of 142, left axis deviation, nonspecific ST abnormalities, Q waves in V1 and V2, no STEMI, according to my interpretation. Medications / Prescriptions Medications or Prescriptions considered but not ordered:: none Medication administrations:: see above Consultations Consultation(s) initiated? (list below): No Diagnosis Differential diagnosis arrhythmia/palpitations: palpitations, anxiety, sinus tachycardia, artial fibrillation, artial flutter and supraventricular tachycardia Most likely diagnosis given after review of the tests above:: afib rvr Admission Indicated Admission indicated?: not indicated Admission Request Was there a request for admission?: No Disposition Plan Disposition Plan: other (specify) (Signed out to Dr. Emmanuel at 0600 pending re-evaluation.) Discharge Plan Prescriptions/Referrals Prescriptions/Med Rec: No Action levothyroxine 50 mcg tablet 50 mcg PO QDAY Patient Comments: TOME OG TABLETA POR V A ORAL EN LA MA DIMPLE Referrals: Umair Patel MD [Primary Care Provider] - In 1 week Problem List Clinical Impression: Atrial fibrillation with rapid ventricular response Patient/Caregiver Discharge Instructions Print Language: Qatari
[2024-08-18 04:32] LABS: Alanine Aminotransferase 27 U/L (10-49); Albumin, Serum 4.3 gm/dL (3.4-4.8); Albumin/Globulin Ratio 1.1 (1.2-2.2); Alkaline Phosphatase 101 U/L (46-116); Anion Gap 10 (7-16); Aspartate Amino Transferase 26 U/L (0-34); BUN/Creatinine Ratio 14 Ratio (12-20); Bilirubin,Total 0.8 mg/dL (0.3-1.2); Blood Urea Nitrogen 14 mg/dL (9-23); Calcium 9.5 mg/dL (8.3-10.6); Calcium (Corrected) 9.5 mg/dL (8.5-10.1); Carbon Dioxide 24.5 mMol/L (20.0-31.0); Chloride 110 mMol/L (98-107); Estimated Creatinine Clearance 52.3 mL/min (>60); Free T4 (Free Thyroxine) 1.22 ng/dL (0.89-1.76); Globulin 3.8 gm/dL (2.3-3.5); Glucose 129 mg/dL (74-106); Osmolality,Calculated 289 (275-295); Potassium 3.8 mMol/L (3.4-5.1); Sodium 144 mMol/L (136-145); Thyroid Stimulating Hormone 7.46 uIU/mL (0.55-4.78); Total Protein 8.1 gm/dL (5.7-8.2); Troponin I < 0.020 ng/mL (0.0-0.045); eGFR > 60 See Note
[2024-08-18] MEDS: SODIUM CHLORIDE 0.9% 500 ML 500 ML 999 ML IV (05:02)
[2024-08-18] MEDS: DILTIAZEM INJ 5 MG/ML VIAL 5 ML 15 MG IV (05:04)
[2024-08-18 05:21] LABS: Prothrombin Time 11.4 Seconds (9.0-12.2)
[2024-08-18 05:33] LABS: B-Type Natriuretic Peptide 132 pg/mL (0-100)
--- NOTE | 2024-08-18 06:19 | PD.EDADDENDU ---
Emergency Room Addendum <Natividad Delarosa - Last Filed: 08/18/24 06:41> Addendum Narrative: 0600: Care assumed from Dr. Maldonado, the previous shift emergency physician. Past medical, surgical, social and family history reviewed. Vitals and home medications reviewed. I will assume the care of the patient at this time, pending reassessment and final disposition. Please refer to the emergency department record for history and examination from initial visit.?The following addendum documentation note is intended to reflect any pending information, findings, or radiology results not included in the patient?s initial chart. 0635: I spoke with resident working with Dr. William. Discussed patients PMHx, HPI, ED course, exam findings, labs, and radiology results. The hospitalist agree to accept the patient for admission. <Gabriel Emmanuel MD - Last Filed: 08/18/24 06:43> Addendum Narrative: 0600: Care assumed from Dr. Maldonado, the previous shift emergency physician. Past medical, surgical, social and family history reviewed. Vitals and home medications reviewed. I will assume the care of the patient at this time, pending reassessment and final disposition. Please refer to the emergency department record for history and examination from initial visit.?The following addendum documentation note is intended to reflect any pending information, findings, or radiology results not included in the patient?s initial chart. 0635: I spoke with resident working with Dr. William. Discussed patients PMHx, HPI, ED course, exam findings, labs, and radiology results. The hospitalist agree to accept the patient for admission. As mentioned above patient was signed 0600 hrs. of some with A-fib RVR had it this past April comes in with a rate of 140 got a single dose of diltiazem and was still going fast with no change so a second dose was given and started on a drip. Patient will be admitted for A-fib with RVR. She is got a mild elevation in her BNP. Her TSH is a little high but her free T4 is within normal limits. Hospitalist Dr. Camacho was called and will admit.
[2024-08-18] MEDS: DILTIAZEM INJ 5 MG/ML VIAL 5 ML 10 MG IV (07:00)
[2024-08-18] MEDS: DILTIAZEM in D5W 125 MG 125 MG/125 ML BAG IV (07:23)
--- NOTE | 2024-08-18 08:01 | ECHO_ITS ---
Transthoracic Echo Report Ht (in): 62 Wt (lb): 165 Exam Location: Portable Status: Emergency Pst Manager: LYSSA Taylor^^^^ Indications: Procedure Performed: BP: 129 / 90 HR: 125 Rhythm: Atrial fibrillation Technical Quality: Fair MEASUREMENTS (Male / Female) Normal Values 2D ECHO LV Diastolic Diameter PLAX 3.8 cm 4.2 - 5.9 / 3.9 - 5.3 cm LV Systolic Diameter PLAX 2.6 cm IVS Diastolic Thickness 1.2 cm 0.6 - 1.0 / 0.6 - 0.9 cm LVPW Diastolic Thickness 1.0 cm 0.6 - 1.0 / 0.6 - 0.9 cm LV Relative Wall Thickness 0.6 LVOT Diameter 1.5 cm Aortic Root Diameter 2.7 cm LA Systolic Diameter LX 3.0 cm 3.0 - 4.0 / 2.7 - 3.8 cm LV Ejection Fraction MOD 4C 67.1 % LV Cardiac Index MOD 4C 3125.0 cm?/min?m? LV Ejection Fraction 4C AL 67.9 % LV Cardiac Index 4C AL 3261.5 cm?/min?m? LA Volume Index 33.8 cm?/m? 16 - 28 cm?/m? Ascending Aorta Diameter 2.7 cm DOPPLER AV Peak Velocity 139.0 cm/s AV Peak Gradient 7.7 mmHg AV Mean Gradient 5.0 mmHg AV Velocity Time Integral 25.8 cm LVOT Peak Velocity 82.8 cm/s LVOT Peak Gradient 2.7 mmHg LVOT Velocity Time Integral 17.9 cm LVOT Cardiac Index 2153.6 cm?/min?m? AV Area Cont Eq vti 1.2 cm? AV Area Cont Eq pk 1.1 cm? MV Area PHT 5.6 cm? Mitral E Point Velocity 80.8 cm/s LV E' Lateral Velocity 8.8 cm/s Mitral E to LV E' Lateral Ratio 9.2 LV E' Septal Velocity 9.9 cm/s Mitral E to LV E' Septal Ratio 8.2 TR Peak Velocity 293.5 cm/s TR Peak Gradient 34.5 mmHg PV Peak Velocity 91.8 cm/s PV Peak Gradient 3.4 mmHg RVOT Peak Velocity 71.7 cm/s FINDINGS Left Ventricle Normal left ventricular size, wall thickness, systolic function with no obvious regional wall motion abnormalities. There is grade II diastolic dysfunction of the left ventricle the left ventricular ejection fraction is normal, estimated at 55-60%. Right Ventricle The right ventricle is normal in size and systolic function. The estimated right ventricular systolic pressure, 35 mmHg. Left Atrium The left atrium is normal by two-dimensional, color flow and Doppler imaging with no structural abnormalities, no thrombus formation present. Right Atrium The right atrium is normal by two-dimensional imaging, color flow and Doppler imaging with no structural abnormalities, no thrombus formation present. Atrial Septum The interatrial septum appears normal with no evidence of a shunt. Aorta The aorta is normal by two-dimensional, color flow and Doppler interrogation. Mitral Valve Mild mitral regurgitation. Mild mitral annular calcification. Aortic Valve Aortic valve sclerosis. Tricuspid Valve There is mild tricuspid valve regurgitation. Pulmonic Valve Trivial pulmonic valve regurgitation. Vessels The pulmonary artery appears normal. The inferior vena cava pulmonary and hepatic veins appear normal. Pericardium The pericardium is normal by two-dimensional imaging. There is no significant pericardial effusion. CONCLUSIONS indication: AFIB The transthoracic study is normal by two-dimensional, color flow imaging and Doppler interrogation. Normal left ventricular size and function. Approximate ejection fraction is 55%. Trace mitral and trace tricuspid regurgitation Camilla Baxter (Electronically Signed) Final Date: 19 August 2024 11:42
[2024-08-18] MEDS: APIXABAN 2.5 MG TABLET PO ×2 (08:51→20:34)
--- NOTE | 2024-08-18 09:01 | PC.NURSE ---
SPOKE TO DR. Tina KLINE AND MADE AWARE PT'S HR STILL IN THE 130'S; CARDIZEM DRIP HAS BEEN RUNNING AT 5ML/HR FOR ABOUT AN HOUR AND A HALF. PER DR. KLINE, KEEP CARDIZEM DRIP RUNNING AT THE SAME RATE; WILL SPEAK TO MY ATTENDING FIRST.
--- NOTE | 2024-08-18 09:55 | PC.NURSE ---
SPOKE TO DR. CAST PER PT'S REQUEST AND UPDATED ON PT'S POC; PER DR. CAST, WILL SPEAK TO HOSPITALISTS THERE.
[2024-08-18] MEDS: DILTIAZEM INJ 5 MG/ML VIAL 5 ML 20 MG IV (10:59)
--- NOTE | 2024-08-18 11:11 | ESHP_ITS ---
<Statement entered by Keven Harrison MD - 08/26/24 09:20> I reviewed above note and agree with findings and plans. I have also personally examined the patient with medicine team and went over assessment and plan with medical team including electrical intern and resident physician. Documentation for date of: 08/18/24 HPI History of Present Illness Chief complaint: Palpitation History of present illness: Ms. Sanders is a 68-year-old female with past medical history of atrial fibrillation and hypothyroidism who presented to [facility] emergency department on 08/18/2024 with a chief complaint of palpitations. Patient reported that she woke up feeling that her heart was beating out of her chest, reports feeling some chest pain as well associated with palpitations, checked her blood pressure and heart rate at home which was significantly elevated and hence decided to come to the emergency department for further evaluation. Patient denies any shortness of breath, orthopnea, headache, syncope, dizziness, fall or presyncope. Patient follows Dr. Michelle Al outpatient, was recently seen in clinic, Eliquis decreased to 2.5 twice daily due to nosebleeds and is on Cardizem 120mg daily. Patient admitted to hospital for management of atrial fibrillation with RVR. ED Course: ED Vitals: ED vitals blood pressure 185/84, heart rate 144, respiratory rate 19, temp 98.3, O2 sat 96 on room air ED Labs: ED labs significant for chloride 110 glucose 129, BNP 133, globulin 3.8, TSH 7.46. ED Imaging: EKG in ED shows A-fib with RVR, chest x-ray showed no lobar or pulmonary edema ED Treatment: Patient was given diltiazem 15 mg x 1, 10 mg x 1 in ED and was started on diltiazem drip Review of Systems Review of Systems Narrative Review of Systems: ROS: -CONSTITUTIONAL: Denies weight loss, fever and chills. -HEENT: Denies changes in vision and hearing. -RESPIRATORY: Denies SOB and cough. -CV: Positive for palpitations and Chest Pain. -GI: Denies abdominal pain, nausea, vomiting,constipation and diarrhea. -: Denies dysuria and urinary frequency. -MSK: Denies myalgia and joint pain. -SKIN: Denies rash and pruritus. -NEUROLOGICAL: Denies headache and syncope. -PSYCHIATRIC: Denies recent changes in mood. Denies anxiety and depression. Past Medical History Past Medical History Comments PMH COMMENT: PMH: Positive for hypothyroidism, atrial fibrillation PSHx: Cholecystectomy, section. Allergies:No known allergies Social history: -Smoking: Denies -Alcohol Use: Denies -Illicit Drug Use: Denies -Martial Status: Family History: No family history of cardiac disease Exam Vital Signs Temp Pulse Resp BP Pulse Ox O2 Del Method 98.3 F 136 H 17 140/78 H 95 Room Air 08/18/24 09:58 08/18/24 10:59 08/18/24 09:58 08/18/24 10:59 08/18/24 09:58 08/18/24 09:58 Narrative Exam Physical Exam General: Awake and in no acute distress. Conversational and non-toxic appearing. HEENT: Normocephalic, atraumatic, mucous membranes moist. Heart: Irregular rate and rhythm, no murmurs. Lungs: Clear to auscultation with no wheezing or crackles. Abdomen: Soft, nondistended, nontender, positive bowel sounds. ?No guarding or rebound tenderness. Neurologic: Alert and oriented x3, no gross neurological deficit, and patient able to move all 4 extremities. Extremities: No edema. Skin: No rash or ecchymoses. Results: Labs 08/18/24 03:51 08/18/24 03:51 Labs: Short CBC 08/18/24 Range/Units 03:51 WBC 7.2 (3.6-11.0) Thou/mm3 Hgb 13.4 (12.0-16.0) g/dL Hct 40.8 (36.0-46.0) % Plt Count 145 (140-440) Thou/mm3 BMP 08/18/24 03:51 Sodium 144 Potassium 3.8 Chloride 110 H Carbon Dioxide 24.5 BUN 14 Creatinine 1.0 Glucose 129 H Calcium 9.5 Cardiac Enzymes 08/18/24 Range/Units 03:51 Troponin I < 0.020 (0.0-0.045) ng/mL Liver Function 08/18/24 Range/Units 03:51 Total Bilirubin 0.8 (0.3-1.2) mg/dL AST 26 (0-34) U/L ALT 27 (10-49) U/L Alkaline Phosphatase 101 (46-116) U/L Albumin 4.3 (3.4-4.8) gm/dL Quality Measures Quality Measures none Advance care planning discussed with:: patient Medications Home Medications and Allergies Home Medications ?Medication ?Instructions ?Recorded ?Confirmed ?Type levothyroxine 50 mcg tablet 50 mcg PO QDAY 05/17/24 History Allergies Allergy/AdvReac Type Severity Reaction Status Date / Time No Known Allergies Allergy Verified 05/17/24 00:00 Visit Medications Acetaminophen (Acetaminophen 325 Mg Tablet) 650 mg PO Q6H PRN PRN Reason: Pain (1-3) and Fever >101.5 Stop: 09/17/24 07:53 Apixaban (Apixaban 2.5 Mg Tablet) 2.5 mg PO BID [facility] Stop: 09/17/24 08:59 Last Admin: 08/18/24 08:51 Dose: 2.5 mg Diltiazem HCl (Diltiazem In D5w 125 Mg) 125 mg in 125 mls @ 10 mls/hr IV .Q10H28S [facility] Stop: 09/17/24 10:41 Levothyroxine Sodium (Levothyroxine Sodium 25 Mcg Tablet) 50 mcg PO ACBR [facility] Stop: 09/18/24 05:59 Ondansetron HCl (Ondansetron Inj 2 Mg/Ml Inj 2 Ml) 4 mg IV Q6H PRN; Protocol PRN Reason: NAUSEA OR VOMITING Stop: 09/17/24 07:56 Sennosides (Senna Tablet) 1 tab PO QDAY PRN; Protocol PRN Reason: constipation Stop: 09/17/24 07:56 Discontinued Medications Diltiazem HCl (Diltiazem Inj 5 Mg/Ml Vial 5 Ml) 15 mg IV X1 ONE Stop: 08/18/24 04:34 Last Admin: 08/18/24 05:04 Dose: 15 mg Diltiazem HCl (Diltiazem Inj 5 Mg/Ml Vial 5 Ml) 10 mg IV X1 ONE Stop: 08/18/24 06:34 Last Admin: 08/18/24 07:00 Dose: 10 mg Diltiazem HCl (Diltiazem Inj 5 Mg/Ml Vial 5 Ml) 20 mg IV X1 ONE Stop: 08/18/24 10:44 Last Admin: 08/18/24 10:59 Dose: 20 mg Sodium Chloride (Ns) 500 mls @ 999 mls/hr IV .Q31M ONE Stop: 08/18/24 05:00 Last Infusion: 08/18/24 05:54 Dose: Infused Diltiazem HCl (Diltiazem In D5w 125 Mg) 125 mg in 125 mls @ 5 mls/hr IV .Q24H [facility] Stop: 09/17/24 07:29 Last Admin: 08/18/24 07:23 Dose: 5 mg/hr, 5 mls/hr Assessment & Plan Plan Assessment and plan: Summary: Ms. Sanders is a 68-year-old female with past medical history of atrial fibrillation and hypothyroidism who presented to [facility] emergency department on 08/18/2024 with a chief complaint of palpitations. Patient admitted to hospital for management of atrial fibrillation with RVR. #Atrial fibrillation with rapid ventricular response #Palpitations, chest pain Patient reported that she woke up feeling that her heart was beating out of her chest, reports feeling some chest pain as well associated with palpitations, checked her blood pressure and heart rate at home which was significantly elevated and hence decided to come to the emergency department for further evaluation. Patient follows Dr. Michelle Al outpatient, was recently seen in clinic, Eliquis decreased to 2.5 twice daily due to nosebleeds and is on Cardizem 120mg daily. [id number] Score 3 points Plan: -Patient started on diltiazem drip, increased rate of diltiazem to 15 mg/h, patient continues to be in A-fib with RVR -Stop diltiazem drip, started on amiodarone drip -Scheduled diltiazem 60 mg p.o. every 6 hours -Resumed Eliquis 2.5 mg twice daily -Continue telemonitoring -Cardiology consulted, appreciate recommendations -Follow A1c and lipid panel in a.m. -Keep magnesium more than 2, potassium more than 4 # Hypothyroidism TSH 7.46, free T4 1.22 -Resume home dose levothyroxine DVT prophylaxis: Eliquis 2.5 mg twice daily GI prophylaxis: Not indicated Diet: Cardiac Lines: Peripheral IV Code status: Full code Case discussed with Attending Dr. Harrison. Elba Monteiro PGY1 Disclaimer: This note was dictated by speech recognition. Minor errors in florist manager may be present due to voice recognition software.
[2024-08-18] MEDS: DILTIAZEM in D5W 125 MG 125 MG/125 ML BAG 10 MG IV (11:12)
--- NOTE | 2024-08-18 12:32 | PC.NURSE ---
Contacted admitting providers at [phone] for parameters on Diltiazam. Per providers: parameter is keep pulse <130 and contact if out of parameters. Provider contacted at [phone] and let him know Pulse was >130. No orders at this time. Pt. is in no distress at this time.
--- NOTE | 2024-08-18 12:57 | ESCONSULT_ITS ---
<Statement entered by Michelle Al MD - 08/19/24 11:40> The patient is personally evaluated by me known to me for several years longstanding history of paroxysmal A-fib on diltiazem and atenolol combination came to the hospital with A-fib RVR diltiazem did not control rate well changed to amiodarone IV patient's heart rate is controlled well now continue the oral diltiazem and amiodarone IV to control and possibly convert to sinus rhythm once the patient is converted to sinus rhythm will change to oral amiodarone and atenolol combination to discharge home possibly hopefully tomorrow. Patient has had workup in the past negative for CAD normal left ventricle function hence no further cardiac workup is necessary at this time. I evaluated the patient with PGY 3 Dr. Sebastián Bernard agree with the treatment plan recommendation as documented HPI Data of Consult Patient: known to practice within the last 3 years Requesting Physician: Keven Harrison MD Admitting Provider: Keven Harrison MD Attending Provider: Keevn Harrison MD Primary Care Provider: Umair Patel MD Consult Narrative Reason for consult: afib rvr History of present illness: This is a 68 yo female with a past medical history of atrial fibrillation on anticoagulation and hypothyroidism presented to the ED due to chest palpitations. Patient follows Dr Al. Yesterday the patient was seen in the office due to nosebleeds, which eliquis was decreased to 2.5mg PO BID. Also, patient was bradycardic in he clinic which prompted the decrease of diltiazem from 240mg QD to 140mg. While in the ED patient was given multiple boluses of diltiazem and strarted on a diltiazem drip. Currently patient is still on atrial fibrillation with RVR despite current management. Patient is asymptomatic, denies chest pain, SOB, or palpitaions. Labs and imaging were reviewed. Cardiology was consulted for the management of atrial fibrillation with RVR. cc:: cc: Keven Harrison MD Review of Systems Review of Systems Systems Reviewed: All systems reviewed, normal except as documented Exam Vital Signs Temp Pulse Resp BP Pulse Ox O2 Del Method 98.3 F 136 H 21 H 109/68 93 L Room Air 08/18/24 09:58 08/18/24 11:45 08/18/24 11:45 08/18/24 11:45 08/18/24 11:45 08/18/24 11:24 Narrative Exam Constitutional: AOx3, able to speak full sentences HEENT: NC/AT, PERRLA, oral mucosa moist, neck supple CVS: irregularly irregular rate, S1-S2 present, no murmurs RESP: CTAB GI: non distended, non tender to palpation, NBS MSK: full ROM, no peripheral edema, peripheral pulses present Skin: warm and dry, no rashes Neuro: cabana attendant II-XII grossly intact. Sensation grossly intact. Results Labs 08/18/24 03:51 08/18/24 03:51 Labs: Short CBC 08/18/24 Range/Units 03:51 WBC 7.2 (3.6-11.0) Thou/mm3 Hgb 13.4 (12.0-16.0) g/dL Hct 40.8 (36.0-46.0) % Plt Count 145 (140-440) Thou/mm3 BMP 08/18/24 03:51 Sodium 144 Potassium 3.8 Chloride 110 H Carbon Dioxide 24.5 BUN 14 Creatinine 1.0 Glucose 129 H Calcium 9.5 Cardiac Enzymes 08/18/24 Range/Units 03:51 Troponin I < 0.020 (0.0-0.045) ng/mL Liver Function 08/18/24 Range/Units 03:51 Total Bilirubin 0.8 (0.3-1.2) mg/dL AST 26 (0-34) U/L ALT 27 (10-49) U/L Alkaline Phosphatase 101 (46-116) U/L Albumin 4.3 (3.4-4.8) gm/dL Quality Measures Quality Measures none Advance care planning discussed with:: patient and spouse Medications Home Medications and Allergies Home Medications ?Medication ?Instructions ?Recorded ?Confirmed ?Type levothyroxine 50 mcg tablet 50 mcg PO QDAY 05/17/24 History Allergies Allergy/AdvReac Type Severity Reaction Status Date / Time No Known Allergies Allergy Verified 05/17/24 00:00 Visit Medications Acetaminophen (Acetaminophen 325 Mg Tablet) 650 mg PO Q6H PRN PRN Reason: Pain (1-3) and Fever >101.5 Stop: 09/17/24 07:53 Apixaban (Apixaban 2.5 Mg Tablet) 2.5 mg PO BID [facility] Stop: 09/17/24 08:59 Last Admin: 08/18/24 08:51 Dose: 2.5 mg Diltiazem HCl (Diltiazem In D5w 125 Mg) 125 mg in 125 mls @ 10 mls/hr IV .[id number] [facility] Stop: 09/17/24 10:41 Last Admin: 08/18/24 11:12 Dose: 10 mg/hr, 10 mls/hr Levothyroxine Sodium (Levothyroxine Sodium 25 Mcg Tablet) 50 mcg PO ACBR [facility] Stop: 09/18/24 05:59 Ondansetron HCl (Ondansetron Inj 2 Mg/Ml Inj 2 Ml) 4 mg IV Q6H PRN; Protocol PRN Reason: NAUSEA OR VOMITING Stop: 09/17/24 07:56 Sennosides (Senna Tablet) 1 tab PO QDAY PRN; Protocol PRN Reason: constipation Stop: 09/17/24 07:56 Discontinued Medications Diltiazem HCl (Diltiazem Inj 5 Mg/Ml Vial 5 Ml) 15 mg IV X1 ONE Stop: 08/18/24 04:34 Last Admin: 08/18/24 05:04 Dose: 15 mg Diltiazem HCl (Diltiazem Inj 5 Mg/Ml Vial 5 Ml) 10 mg IV X1 ONE Stop: 08/18/24 06:34 Last Admin: 08/18/24 07:00 Dose: 10 mg Diltiazem HCl (Diltiazem Inj 5 Mg/Ml Vial 5 Ml) 20 mg IV X1 ONE Stop: 08/18/24 10:44 Last Admin: 08/18/24 10:59 Dose: 20 mg Sodium Chloride (Ns) 500 mls @ 999 mls/hr IV .Q31M [facility] Stop: 08/18/24 05:00 Last Infusion: 08/18/24 05:54 Dose: Infused Diltiazem HCl (Diltiazem In D5w 125 Mg) 125 mg in 125 mls @ 5 mls/hr IV .Q24H [facility] Stop: 09/17/24 07:29 Last Admin: 08/18/24 07:23 Dose: 5 mg/hr, 5 mls/hr Assessment & Plan Plan #Atrial fibrillation with RVR #History of Atrial fibrillation on anticoagulation Assessment: Patient presented with palpitations. Likely etiology of the Afib wiht RVR is due to decrease dosage of oral rate control regime in the outpatient setting due to concerns of bradycardia. Patient was on diltiazem 240mg daily and was decreased to 140mg daily. Afterwards, patient went into RVR. Also there was complaints of epistaxis which lead to the decrease of apixaban from 5mg PO BID to 2.5mg PO BID. In the ED patient was given several doses of diltiazem boluses and was placed on a diltiazem drip with a rate of 10mg/hr. Labs were negative for troponins and BNP was 142. CXR was negative. Electrolyte were within normal limits, no signs of an infectious process noted. Most recent echocardiogram on 04/2024 showed normal LV size and function. Estimated EF 55-60%. Plan: -telemetry unit -electrolyte monitoring -discontinue diltiazem drip -start diltiazem 60mg PO q6h -start amiodorone drip protocol -resume apixaban 2.5mg PO BID -consider IV Beta joe/calcium channel joe pushes for rate control - Patient's care was discussed with my attending physician, Dr. Servando Bustos MD Internal Medicine PGY-3
[2024-08-18] MEDS: DILTIAZEM in D5W 125 MG 125 MG/125 ML BAG 15 MG IV (13:22)
--- NOTE | 2024-08-18 15:25 | PC.SS ---
Initial assessment: this is a 68-year-old female pending admission to med/tele. Patient's spouse, Jovanny assisted with providing information. Patient and spouse are Czech speaking. Jovanny was able to demographic information. Jovanny Sanders was identified as the patient's alternate medical surrogate decision maker. Patient resides at home with her . Patient able to complete all ADL?s independently, no need for DME. Patient's PCP is Dr. Kunz. Plan is for patient to return home upon discharge, spouse to transport home. No further intervention required at this time, social organization professor would be available to address any further concerns. D/c plan: Home Next of kin: spouse, Jovanny Sanders
[2024-08-18] MEDS: DILTIAZEM 30 MG TABLET 60 MG PO (15:43)
[2024-08-18] MEDS: AMIODARONE 150 MG IVPB 150 MG/100 ML BAG 600 MG IV (16:26)
[2024-08-18] MEDS: AMIODARONE 360 MG IVPB 360 MG/200 ML BAG 33.333 MG IV (16:38)
--- NOTE | 2024-08-18 19:46 | PC.NURSE ---
notified Dr. Hernandez of patients hr sustaining in 50's and dipped into 40's once. New order to stop amiodarone drip and monitor heartrate.
[2024-08-19] VITALS: BP 95/67; PULSE 53; PULSE 56; RESP 20; TEMP 36.3; O2SAT 96
--- NOTE | 2024-08-19 03:51 | PC.NURSE ---
[employer] downtime occurred on <08/19/24> from <0200> to <0350>.
[2024-08-19 04:00] VITALS: BP 107/64; PULSE 52; RESP 10; TEMP 36.2; O2SAT 92
[2024-08-19 05:21] LABS: Basophils % (Auto) 1 % (0-2.5); Eosinophils # (Auto) 0.1 Thou/mm3 (0.0-0.5); Eosinophils % (Auto) 2 % (0-10); Hematocrit 39.6 % (36.0-46.0); Hemoglobin 13.2 g/dL (12.0-16.0); Immature Granulocytes % (Auto) 0 % (0-0); Immature Granulocytes Auto 0.03 Thou/mm3 (0.00-0.00); Lymphocytes # (Auto) 2.3 Thou/mm3 (1.0-4.8); Lymphocytes % (Auto) 32 % (10-50); Mean Corpuscular HGB Conc 33.3 g/dl (31.0-37.0); Mean Corpuscular Hemoglobin 29.8 pg (25.0-35.0); Mean Corpuscular Volume 89 fL (80-100); Monocytes # (Auto) 0.9 Thou/mm3 (0.0-0.8); Monocytes % (Auto) 13 % (0-12); Neutrophils # (Auto) 3.8 Thou/mm3 (1.8-7.7); Neutrophils % (Auto) 53 % (37-80); Nucleated Red Blood Cell % 0 /100 WBC (0); Platelet Count 159 Thou/mm3 (140-440); RDW Standard Deviation 43.9 fL (36.4-46.3); Red Blood Count 4.43 Miln/mm3 (4.00-5.20); White Blood Count 7.2 Thou/mm3 (3.6-11.0)
[2024-08-19] MEDS: LEVOTHYROXINE SODIUM 25 MCG TABLET 50 MCG PO (05:22)
[2024-08-19 05:44] LABS: Alanine Aminotransferase 26 U/L (10-49); Albumin, Serum 3.8 gm/dL (3.4-4.8); Alkaline Phosphatase 82 U/L (46-116); Anion Gap 9 (7-16); Aspartate Amino Transferase 24 U/L (0-34); BUN/Creatinine Ratio 16 Ratio (12-20); Bilirubin,Total 1.1 mg/dL (0.3-1.2); Blood Urea Nitrogen 19 mg/dL (9-23); Calcium 9.3 mg/dL (8.3-10.6); Calcium (Corrected) 9.5 mg/dL (8.5-10.1); Carbon Dioxide 25.2 mMol/L (20.0-31.0); Chloride 107 mMol/L (98-107); Cholesterol 186 mg/dL (132-200); Creatinine (Component) 1.2 mg/dL (0.6-1.3); Estimated Creatinine Clearance 43.5 mL/min (>60); Globulin 3.7 gm/dL (2.3-3.5); Glucose 120 mg/dL (74-106); HDL Cholesterol 37 mg/dL (40-60); LDL Cholesterol,Calculated 130 mg/dL (0-130); Magnesium 2.1 mg/dL (1.6-2.6); Osmolality,Calculated 284 (275-295); Phosphorous 4.9 mg/dL (2.4-5.1); Potassium 4.1 mMol/L (3.4-5.1); Sodium 141 mMol/L (136-145); Total Protein 7.5 gm/dL (5.7-8.2); Triglycerides 95 mg/dL (30-150); eGFR 50 See Note
[2024-08-19 05:48] LABS: Glucose Estimated Average 120 mg/dL (80-131); Hemoglobin A1C 5.8 % Hgb (4.8-6.0)
[2024-08-19 05:53] VITALS: BMI 29.9
[2024-08-19 06:58] VITALS: PULSE 71; RESP 22; RESP 94
[2024-08-19 07:57] VITALS: PULSE 55
[2024-08-19 08:00] VITALS: BP 127/70; PULSE 55; PULSE 62; RESP 16; TEMP 36.4; O2SAT 96
[2024-08-19] MEDS: APIXABAN 2.5 MG TABLET PO (08:57)
--- NOTE | 2024-08-19 10:27 | PC.SS ---
Follow up note: Waiting for Cardio recommendations. Pt on IV drip. Pt will return home upon dc.
[2024-08-19 12:00] VITALS: BP 141/70; PULSE 58; PULSE 65; RESP 16; TEMP 36.4; O2SAT 95
--- NOTE | 2024-08-19 13:33 | ESDS_ITS ---
<Statement entered by Keven Harrison MD - 08/26/24 09:25> I reviewed above note and agree with findings and plans. I have also personally examined the patient with medicine team and went over assessment and plan with medical team including post graduate intern and resident physician. <Statement entered by Florian Garcia MD - 08/20/24 15:23> I discussed with and supervised the post graduate intern physician involved in the care of this patient. Patient assessment and plan was discussed with entire medicine team, including my attending. I agree with the assessment and plan as documented by post graduate intern doctor. Patient care was discussed with my attending physician Dr. Christy Garcia, PGY-2 Planned Discharge Date 08/19/24 DS: Providers Provider Date of admission: 08/18/24 07:55 Primary care physician: Umair Patel MD Admitting Provider: Keven Harrison MD Attending Provider on Admission: Keven Harrison MD Consults: 08/18/24 07:58 Consult to Cardiology Routine Comment: A Fib RVR Consulting Provider: Michelle Al Attending Provider on DC: Keven Harrison MD Discharging Provider: Keven Harrison MD Anticipated date of discharge: 08/19/24 DS: Diagnosis Problem List Completed Was Problem List Reviewed/Reconciled?: Yes Hospital Course Hospital Course Hospital course: Hospital course: Ms. Andrew is a 68-year-old female with past medical history of hypothyroidism and atrial fibrillation who presented to [facility] emergency department with a chief complaint of palpitations. Patient reported that she woke up feeling that her heart was beating out of her chest, was found to have elevated heart rate at home and decided to come to emergency department for further evaluation. On presentation patient's heart rate was 144 EKG showed atrial fibrillation with rapid ventricular response, patient was given diltiazem pushes in ED and was eventually started on diltiazem drip, patient continued to be in atrial fibrillation despite uptitrating diltiazem drip to 15 mg/h therefore patient was switched to amiodarone drip and was started on diltiazem 60 mg p.o. every 6 hours. Overnight patient heart rate went down to 40s and both amiodarone drip and diltiazem was discontinued. Patient was assessed by cardiology earlier this morning, patient deemed stable for discharge, further plan is to discharge patient home on atenolol 50 mg daily, amiodarone 200 mg twice daily and Eliquis 2.5 mg twice daily. Patient to resume other home medications and follow outpatient with cardiology in 1 to 2 weeks, patient to follow-up with primary care physician in 1 week. Patient is stable for discharge patient responded well to hospital treatment. Discharge diagnoses: #Atrial fibrillation with rapid ventricular response, resolved #Hypothyroidism #Depression Case discussed with attending physician Dr. Harrison and my senior PGY2 Dr. Radha Monteiro PGY1. Status at Discharge Functional status at discharge: independent ambulation Overall status at discharge: patient is back to baseline Time Spent with Patient Time attestation: Total time spent providing and/or coordinating discharge services: Greater than 35 minutes Time spent: Greater than 30 minutes Exam Vital Signs Temp Pulse Resp BP Pulse Ox O2 Del Method 97.6 F 65 16 141/70 H 95 Room Air 08/19/24 12:00 08/19/24 12:00 08/19/24 12:00 08/19/24 12:00 08/19/24 12:00 08/19/24 12:00 Narrative Exam Physical Exam General: Awake and in no acute distress. Conversational and non-toxic appearing. HEENT: Normocephalic, atraumatic, mucous membranes moist. Heart: Regular rate and rhythm, no murmurs. Lungs: Clear to auscultation with no wheezing or crackles. Abdomen: Soft, nondistended, nontender, positive bowel sounds. ?No guarding or rebound tenderness. Neurologic: Alert and oriented x3, no gross neurological deficit, and patient able to move all 4 extremities. Extremities: No edema. Skin: No rash or ecchymoses. Discharge Plan Plan Patient Disposition: HOME (Self Care) Patient condition on transfer: Stable Care Plan Goals: Stop home medication Diltiazem. Start new medication amiodarone 200mg BID Continue atenolol mg daily and other home medications Follow up with Cardiology Dr. Michelle Al in 1-2 weeks Return to ER if symptoms reoccur. Prescriptions/Referrals Prescriptions/Med Rec: New amiodarone 200 mg tablet 200 mg PO BID 30 Days Qty: 60 1RF Eliquis 2.5 mg tablet 2.5 mg PO BID Qty: 30 0RF Continued levothyroxine 50 mcg tablet 50 mcg PO QDAY Patient Comments: TOME OG TABLETA POR V A ORAL EN LA MA DIMPLE fluoxetine 20 mg capsule 20 mg PO DAILY atenolol 50 mg tablet 50 mg PO Q24H 30 Days Qty: 30 0RF Discontinued Eliquis 5 mg tablet 5 mg PO Q12H Patient Comments: TOME 1 TABLETA POR V A ORAL DOS VECES AL D A FOR 30 DAYS Rx Instructions: orally every 12 hours; Referrals: Umair Patel MD [Primary Care Provider] - Patient/Caregiver Discharge Instructions Discharge Activity: activity as tolerated Other Discharge Activity Instructions:: Stop home medication Diltiazem. Start new medication amiodarone 200mg BID Continue home med atenolol and other home medications Follow up with Cardiology Dr. Michelle Al in 1-2 weeks Return to ER if symptoms reoccur. Education Materials: Your Heart's Electrical System, AFL/Afib, Understanding Atrial Fibrillation, ED About Arrhythmias Print Language: Finnish Stand Alone Forms: Odalis Award Info., Patient Portal Info Letter Discharge Order Discharge Orders: Discharge (Routine); Ordered 08/19/24 Ordered By: Nereyda Jacob Quality Discharge Quality Measures VTE prophylaxis
== END 2024-08-19 13:30 | disposition home or self-care (01) | DRG 310 ==
LOC: SERX 06:42 → SERHOLD 08:13 → S2NX 16:07
PROVIDERS: Emergency Medicine; Physician Assistant; Admitting Provider Internal Medicine; Emergency Provider Emergency Medicine; PCP Family Medicine; Visit Provider Internal Medicine
DX: I48.0 Paroxysmal atrial fibrillation (principal); I10 Essential (primary) hypertension; E03.9 Hypothyroidism, unspecified; F32.A Depression, unspecified; R04.0 Epistaxis; Z79.01 Long term (current) use of anticoagulants; Z79.899 Other long term (current) drug therapy; Z79.890 Hormone replacement therapy
CPT/HCPCS: 36415; 71045; 80053; 80061; 83036; 83735; 83880; 84100; 84436; 84439; 84443; 84484; 85025; 85610; 93005; 93306; 96361; 96365; 99285; J0283; J3490; J7040; A9270

== ENCOUNTER 2024-09-17 09:42 | Day surgery (SDC) | payer OTHER, SELFPAY ==
--- NOTE | 2024-09-16 07:00 | EKG_ITS ---
[facility] Test Date: 2024-09-16 Pat Name: CHER HARRELL Department: Room: - Gender: Female Putty Maker: DARELL : 1955 Requested By: Michelle Taylor Order Number: [id number] Reading MD: Michelle Taylor Measurements Intervals [place] Rate: 49 P: 83 SC: 185 QRS: -36 QRSD: 102 T: 39 QT: 489 QTc: 442 Interpretive Statements SINUS BRADYCARDIA MARKED LEFT AXIS DEVIATION [QRS AXIS < -30] INCOMPLETE RIGHT BUNDLE BRANCH BLOCK [90+ ms QRS DURATION, TERMINAL R IN V1/V2, 40+ ms S IN I/aVL/V4/V5/V6] SEPTAL MYOCARDIAL INFARCTION , OF INDETERMINATE AGE [40+ ms Q WAVE IN V1/V2] Compared to ECG 08/18/2024 03:27:56 Incomplete right bundle-branch block now present Atrial fibrillation no longer present Myocardial infarct finding still present /store/S0/[id number].pdf
[2024-09-16 09:42] LABS: Basophils % (Auto) 1 % (0-2.5); Eosinophils # (Auto) 0.1 Thou/mm3 (0.0-0.5); Eosinophils % (Auto) 2 % (0-10); Hematocrit 40.7 % (36.0-46.0); Hemoglobin 13.4 g/dL (12.0-16.0); Immature Granulocytes % (Auto) 1 % (0-0); Immature Granulocytes Auto 0.03 Thou/mm3 (0.00-0.00); Lymphocytes # (Auto) 2.5 Thou/mm3 (1.0-4.8); Lymphocytes % (Auto) 45 % (10-50); Mean Corpuscular HGB Conc 32.9 g/dl (31.0-37.0); Mean Corpuscular Hemoglobin 29.8 pg (25.0-35.0); Mean Corpuscular Volume 90 fL (80-100); Monocytes # (Auto) 0.6 Thou/mm3 (0.0-0.8); Monocytes % (Auto) 11 % (0-12); Neutrophils # (Auto) 2.4 Thou/mm3 (1.8-7.7); Neutrophils % (Auto) 42 % (37-80); Nucleated Red Blood Cell % 0 /100 WBC (0); Platelet Count 147 Thou/mm3 (140-440); RDW Standard Deviation 44.3 fL (36.4-46.3); White Blood Count 5.7 Thou/mm3 (3.6-11.0)
[2024-09-16 09:52] LABS: Partial Thromboplastin Time 27.3 Seconds (22.0-36.0); Prothrombin Time 11.2 Seconds (9.0-12.2)
[2024-09-16 09:53] LABS: Anion Gap 6 (7-16); BUN/Creatinine Ratio 12 Ratio (12-20); Blood Urea Nitrogen 12 mg/dL (9-23); Calcium 9.4 mg/dL (8.3-10.6); Carbon Dioxide 27.8 mMol/L (20.0-31.0); Chloride 106 mMol/L (98-107); Glucose 109 mg/dL (74-106); Osmolality,Calculated 280 (275-295); Potassium 4.5 mMol/L (3.4-5.1); Sodium 140 mMol/L (136-145); eGFR > 60 See Note
[2024-09-17] VITALS (13 sets, daily range): BP systolic 103–158; BP diastolic 44–91; PULSE 60–78; RESP 12–22; TEMP 36.5–36.6; O2SAT 92–97; BMI 31.8
[2024-09-17] MEDS: VANCOMYCIN/NS 1 GM IVPB 200 ML IV (12:37)
--- NOTE | 2024-09-17 12:45 | XR_ITS ---
Examination: AP chest single view Technique one AP semiupright portable chest single view Exam date and time: September 17, 2024 1254 hours INDICATIONS: Postop pacemaker insertion. FINDINGS: Transvenous dual-chamber bipolar cardiac leads satisfactory position No pneumothorax Mild vascular congestion Mild prominence cardiac contour IMPRESSION: Cardiac leads satisfactory position
--- NOTE | 2024-09-17 13:18 | PC.NURSE ---
1223 patient is awake, alert, breathing unlabored, s/p pacemaker to left chest, dressing dry with no bleeding, report received from Claudio LIN. Patien to recover for 2-3 hours until vancomycin completed. xray ordered now, vanco 1g and arm sling for 24 hours. hold eliquis until seen in office. keflex abx edin be called in by Servando. 1238 report given to Ami LIN
--- NOTE | 2024-09-17 15:52 | PC.NURSE ---
[id number] report received from Ami Bender 152 patient is awake, alert, breathing unlabored, dressing dry with no bleeding, arm sling applied to left arm, pt educated to use for 24 hours. discharge instructions given to patient and daughter Jessi, pt educated to hold eliquis until seen by Dr. Al in office, he will let patient know when to resume or stop medication. group fitness department head Keflex from pharmacy and take as prescribed, keep dressing clean and dry, do not remove it or get it wet. MD will remove dressing in office. Patient discharged home in wheelchair with all belongings.
--- NOTE | 2024-09-29 10:29 | ESOP_ITS ---
RE: CHER HARRELL : 1955 DATE OF OPERATION: 09/17/2024 PROCEDURE PERFORMED: 1. Implantation of dual-chamber AV sequential permanent pacemaker, CPT 34093. 2. Conscious sedation, 30-minute duration. PREOPERATIVE DIAGNOSES: Symptomatic bradycardia, sick sinus syndrome, paroxysmal atrial tachy-constantino arrhythmia. POSTOPERATIVE DIAGNOSIS: Successful implantation of dual-chamber AV sequential permanent pacemaker by [employer]. ANESTHESIA: Conscious sedation and local anesthesia. HISTORY AND INDICATIONS: The patient is a 68-year-old female with a past medical history of hypertension, paroxysmal atrial fibrillation, was doing well until recently. She has had recurrent syncopal episodes of chest pain, shortness of breath, and heart rate drops to 40 beats per minute and less at times with syncope episode. Also, atrial fibrillation with rapid ventricular response. She has had tachy-constantino arrhythmias if the beta-joe was discontinued. She goes to atrial fibrillation with rapid heart rates. The patient was placed on amiodarone, recommended to have dual-chamber permanent pacemaker implantation because symptomatic bradycardia, sick sinus rhythm syndrome, tachy-constantino arrhythmia, class 1 indication for pacemaker implant. DESCRIPTION OF PROCEDURE: The patient was brought to the cardiac catheterization laboratory operating room. Informed consent was obtained from the family and the patient with a drywall stripper, and the patient was given conscious sedation, 2 mg Versed, 100 mcg fentanyl. The left subclavian vein area was prepared in sterile fashion. The patient was given 1% Xylocaine local anesthesia. The left subclavian vein was cannulated by micropuncture technique and true guidewire was introduced. A linear incision was made with a blunt dissection, path was created. Hemostasis was secured. A 6-Finnish sheath was introduced into the vein and atrial and ventricular active fixation leads by [employer]. [employer] were advanced to the right atrial appendage, right ventricular apex. Thresholds were found to be excellent. After obtaining satisfactory thresholds, both leads were anchored to the pectoralis fascia with 2-0 silk suture. An [employer] dual-chamber Assurity MRI safe pacemaker generator was attached to the leads, positioned in the pocket, and secured to the pectoral fascia with 2-0 silk suture. Antibiotic solution was used to cleanse the pocket. Subsequently, subcutaneous tissue was closed using 2-0 chromic continuous sutures. Skin was closed using remigio. No complications. Estimated blood loss was less than 5 mL. The patient was given preoperative antibiotic 1 g Ancef and postoperative 1 g of vancomycin was given. The device details are as follows: The initial thresholds are as follows: Atrial threshold capturing 2 volts, sensing 2.8 millivolts, lead impedance 48 ohms; ventricle threshold 1.5 volts, capturing threshold, sensing 12 millivolts R-waves, lead impedance 740 ohms. The pacer is programmed with DDDR mode, base rate of 60, upper rate of 130. The AF suppression mode was also turned on. The device model and details are as follows: The device is Assurity, MRI, [employer] Assessment Nurse Practitioner, model number is [id number], pacemaker serial number is [id number]. The atrial lead is [employer] 2088 mL, 46 cm length, serial number is [id number]; ventricular lead 52 cm length, EEL [id number]. SUMMARY: Successful implant of dual-chamber permanent pacemaker. COMPLICATIONS: None. Postoperative chest x-ray showed no pneumothorax. The patient was discharged to home the same day as an outpatient. DT: 08:32:43 TT: 10:25:00 Ref: [id number] - TID: [id number]
== END 2024-09-17 15:20 | disposition home or self-care (01) ==
PROVIDERS: PCP Family Medicine; Referring Provider Internal Medicine Cardiovascular Disease; Visit Provider Internal Medicine Cardiovascular Disease
PROC: (CPT 33208; principal; 2024-09-17 11:30)
DX: I49.5 Sick sinus syndrome (principal); Z01.810 Encounter for preprocedural cardiovascular examination; I48.0 Paroxysmal atrial fibrillation; I10 Essential (primary) hypertension
CPT/HCPCS: 33208; 36415; 80048; 85025; 85610; 85730; 93005; 99152; 99153; A4565; A4649; C1785; C1894; C1898; J0171; J0461; J0689; J2250; J2310; J2371; J3010; J3370; J3490

== ENCOUNTER → 2024-11-06 | Outpatient (CLI) | payer OTHER, SELFPAY ==
[2024-11-06 11:20] LABS: Basophils % (Auto) 1 % (0-2.5); Eosinophils # (Auto) 0.1 Thou/mm3 (0.0-0.5); Eosinophils % (Auto) 1 % (0-10); Hematocrit 42.2 % (36.0-46.0); Hemoglobin 13.5 g/dL (12.0-16.0); Immature Granulocytes % (Auto) 0 % (0-0); Immature Granulocytes Auto 0.02 Thou/mm3 (0.00-0.00); Lymphocytes # (Auto) 2.5 Thou/mm3 (1.0-4.8); Lymphocytes % (Auto) 40 % (10-50); Mean Corpuscular Hemoglobin 29.5 pg (25.0-35.0); Mean Corpuscular Volume 92 fL (80-100); Monocytes # (Auto) 0.7 Thou/mm3 (0.0-0.8); Monocytes % (Auto) 10 % (0-12); Neutrophils # (Auto) 2.9 Thou/mm3 (1.8-7.7); Neutrophils % (Auto) 47 % (37-80); Nucleated Red Blood Cell % 0 /100 WBC (0); Platelet Count 175 Thou/mm3 (140-440); RDW Standard Deviation 47.6 fL (36.4-46.3); Red Blood Count 4.58 Miln/mm3 (4.00-5.20); White Blood Count 6.2 Thou/mm3 (3.6-11.0)
[2024-11-06 11:43] LABS: Alanine Aminotransferase 40 U/L (10-49); Albumin, Serum 4.5 gm/dL (3.4-4.8); Alkaline Phosphatase 99 U/L (46-116); Anion Gap 9 (7-16); Aspartate Amino Transferase 35 U/L (0-34); BUN/Creatinine Ratio 12 Ratio (12-20); Bilirubin,Direct 0.2 mg/dL (0.0-0.3); Bilirubin,Total 0.7 mg/dL (0.3-1.2); Blood Urea Nitrogen 12 mg/dL (9-23); Calcium 9.9 mg/dL (8.3-10.6); Cardiac Risk Estimate 3.2 RATIO (3.7-5.6); Chloride 105 mMol/L (98-107); Cholesterol 182 mg/dL (132-200); Free T4 (Free Thyroxine) 1.57 ng/dL (0.89-1.76); Glucose 121 mg/dL (74-106); HDL Cholesterol 57 mg/dL (40-60); LDL Cholesterol,Calculated 106 mg/dL (0-130); Osmolality,Calculated 283 (275-295); Potassium 4.8 mMol/L (3.4-5.1); Sodium 142 mMol/L (136-145); Thyroid Stimulating Hormone 7.29 uIU/mL (0.55-4.78); Total Protein 8.2 gm/dL (5.7-8.2); Triglycerides 93 mg/dL (30-150); eGFR > 60 See Note
== END | disposition home or self-care (01) ==
LOC: COPL 09:25
PROVIDERS: PCP Family Medicine; Referring Provider Family Medicine; Visit Provider Family Medicine
DX: E03.9 Hypothyroidism, unspecified (principal); E78.5 Hyperlipidemia, unspecified; I10 Essential (primary) hypertension
CPT/HCPCS: 36415; 80048; 80061; 80076; 84439; 84443; 85025